=== PATIENT | male | born 1995 | race African-American/Black ===

== ENCOUNTER 2024-04-27 14:35 | Outpatient (CLI) | payer OTHER, SELFPAY ==
[2024-04-27 14:56] LABS: Basophils Percent Auto 0.5 % (0.2-1.2); Eosinophils Absolute Auto 0.2 K/mm3 (0-0.3); Eosinophils Percent Auto 3.4 % (0-4.4); Hematocrit 33.8 % (42.0-52.0); Hemoglobin 10.8 g/dL (14.0-18.0); Immature Granulocyte Absolute 0.02 K/mm3 (0.00-0.031); Immature Granulocyte Percent A 0.3 % (0-0.5); Lymphocytes Absolute Auto 1.09 K/mm3 (0.9-3.2); Lymphocytes Percent Auto 17.9 % (18.3-44.2); Mean Corpuscular Hemoglobin 25.4 pg (26-34); Mean Corpuscular Volume 79.3 fl (80-100); Mean Platelet Volume 8.2 fl (7.4-10.4); Monocytes Absolute Auto 0.3 K/mm3 (0.1-0.6); Monocytes Percent Auto 5.6 % (2.6-8.5); Neutrophils Absolute Auto 4.4 K/mm3 (1.3-6.7); Neutrophils Percent Auto 72.3 % (45.5-73.1); Platelet Count Result 713 k/mm3 (150-375); Red Blood Count 4.26 M/mm3 (4.6-6.20); Red Cell Distribution Width 14.6 % (11.5-14.5); White Blood Count 6.1 K/mm3 (4.5-10.0)
[2024-04-27 15:02] LABS: Hypochromasia 2+; Platelet Estimate Increased (Adequate); Schistocytes None Seen
[2024-04-27 15:03] LABS: Anisocytosis 2+; Crenated RBC 1+; Microcytosis 2+ (NORMAL); Ovalocytes 1+; Poikilocytosis 2+
[2024-04-27 20:18] LABS: Iron 29 ug/dL (49-181); Percent Iron Saturation 11 % (20-50)
[2024-04-27 21:33] LABS: Alanine Aminotransferase 21 U/L (6-50); Albumin Level 3.8 g/dL (3.5-5.1); Alkaline Phosphatase 68 U/L (38-126); Anion Gap 12 mmol/L (4-12); Aspartate Amino Transferase 36 U/L (17-59); Bilirubin,Total 0.3 mg/dL (0.2-1.3); Blood Urea Nitrogen 21 mg/dL (9-20); Calcium 9.3 mg/dL (8.4-10.2); Carbon Dioxide 26 mmol/L (22-30); Chloride 91 mmol/L (98-107); Estimated Glomerular Filt Rate > 60; Glucose 92 mg/dL (65-110); Potassium 4.7 mmol/L (3.4-5.0); Sodium 129 mmol/L (137-145)
[2024-04-27 22:38] LABS: Folic Acid 4.1 ng/mL (2.76->20)
[2024-04-29 10:55] LABS: Alpha Fetoprotein Tumor Marker 4.9 ng/mL (<6.1)
== END 2024-04-27 14:36 | disposition home or self-care (01) ==
PROVIDERS: Visit Provider Internal Medicine Hematology & Oncology
DX: C78.7 Secondary malignant neoplasm of liver and intrahepatic bile duct (principal); D64.9 Anemia, unspecified
CPT/HCPCS: 36415; 80053; 82105; 82607; 82728; 82746; 83540; 83550; 85025

== ENCOUNTER 2024-04-28 07:32 | Outpatient (CLI) | payer OTHER, SELFPAY ==
--- NOTE | ~2024-04-28 | US_ITS ---
EXAMINATION: US paracentesis abd w/image DATE: 04/28/2024 10:06 INDICATION: Ascites. TECHNIQUE: The procedure and its risks, benefits, and alternatives were discussed with the patient. P otential risks discussed included bleeding and infection. The skin was prepped and draped in sterile fashion. 1% lidocaine was used for local anesthesia. Under ultrasound guidance, a 5 Fr catheter with trochar was advanced into the ascites in the left lower quadrant. Fluid was aspirated. The catheter w as removed, and a dressing was applied. There were no immediate complications. FINDINGS: Ultrasound images demonstrate ascites and the catheter within the fluid. IMPRESSION: 1. Successful ultrasound-guided paracentesis yielding 4500 mL of yellow fluid. Reviewed, dictated and finalized at location A.
[2024-04-28 08:02] LABS: Basophils Percent Auto 0.5 % (0.2-1.2); Eosinophils Absolute Auto 0.1 K/mm3 (0-0.3); Eosinophils Percent Auto 1.5 % (0-4.4); Hematocrit 34.9 % (42.0-52.0); Hemoglobin 10.9 g/dL (14.0-18.0); Immature Granulocyte Absolute 0.01 K/mm3 (0.00-0.031); Immature Granulocyte Percent A 0.2 % (0-0.5); Lymphocytes Absolute Auto 1.06 K/mm3 (0.9-3.2); Lymphocytes Percent Auto 17.8 % (18.3-44.2); Mean Corpuscular HGB Conc 31.2 g/dl (32-36); Mean Corpuscular Hemoglobin 24.8 pg (26-34); Mean Corpuscular Volume 79.5 fl (80-100); Mean Platelet Volume 8.5 fl (7.4-10.4); Monocytes Absolute Auto 0.4 K/mm3 (0.1-0.6); Monocytes Percent Auto 6.4 % (2.6-8.5); Neutrophils Absolute Auto 4.4 K/mm3 (1.3-6.7); Neutrophils Percent Auto 73.6 % (45.5-73.1); Platelet Count Result 644 k/mm3 (150-375); Red Blood Count 4.39 M/mm3 (4.6-6.20); Red Cell Distribution Width 14.6 % (11.5-14.5)
[2024-04-28 08:47] LABS: INR 1.1; Prothrombin Time 14.5 Seconds (11.1-14.7)
== END 2024-04-28 07:33 | disposition home or self-care (01) ==
PROVIDERS: Radiology Diagnostic Radiology; Visit Provider Internal Medicine Hematology & Oncology
DX: R18.8 Other ascites (principal)
CPT/HCPCS: 36415; 49083; 85025; 85610; 88104; 88108; 88305; 88342

== ENCOUNTER 2024-05-03 07:13 | Inpatient (IN) | payer OTHER, SELFPAY ==
[2024-05-03] VITALS (11 sets, daily range): BP systolic 126–146; BP diastolic 92–120; PULSE 90–107; RESP 16–20; TEMP 36.4–37.1; O2SAT 100; BMI 15.0
--- NOTE | ~2024-05-03 | CT_ITS ---
EXAMINATION: CT brain wo con DATE: 05/08/2024 08:27 INDICATION: Vision change. TECHNIQUE: Computed tomography (CT) of the head was performed without intravenous contrast. The mA wa s adjusted according to patient size. Iterative reconstruction technique was employed. The dose-lengt h product was 605.33 mGy-cm. COMPARISON: None FINDINGS: There is no intracranial hemorrhage, acute infarction, or abnormal intracranial mass lesion . The ventricles are normal in size. The orbits are normal. The mastoid air cells are normal. There i s mucosal thickening in the paranasal sinuses. IMPRESSION: 1. Normal brain. Reviewed, dictated and finalized at location A. IMPRESSION: 1. Normal brain.
--- NOTE | ~2024-05-03 | US_ITS ---
EXAMINATION: US paracentesis abd w/image DATE: 05/13/2024 10:09 INDICATION: Malignant ascites TECHNIQUE: The procedure and its risks and benefits were discussed with the patient. Potential risks discussed included bleeding and infection. The skin was prepped and draped in sterile fashion. 1% lid ocaine was used for local anesthesia. Under ultrasound guidance, a 5 Fr catheter with trochar was adv anced into the ascites in the left lower quadrant. Fluid was aspirated into vacuum bottles. The kaila ter was removed, and a dressing was applied. There were no immediate complications. FINDINGS: Ultrasound images demonstrate ascites and the catheter within the fluid. IMPRESSION: 1. Successful ultrasound-guided paracentesis yielding 4800 mL of light rashida-colored fluid. Reviewed, dictated and finalized at location A. IMPRESSION: 1. Successful ultrasound-guided paracentesis yielding 4800 mL of light rashida-c olored fluid.
--- NOTE | ~2024-05-03 | US_ITS ---
EXAMINATION: US paracentesis abd w/image DATE: 05/03/2024 12:22 INDICATION: Ascites. TECHNIQUE: The procedure and its risks, benefits, and alternatives were discussed with the patient. P otential risks discussed included bleeding and infection. The skin was prepped and draped in sterile fashion. 1% lidocaine was used for local anesthesia. Under ultrasound guidance, a 5 Fr catheter with trochar was advanced into the ascites in the right lower quadrant. Fluid was aspirated. The catheter was removed, and a dressing was applied. There were no immediate complications. FINDINGS: Ultrasound images demonstrate ascites and the catheter within the fluid. IMPRESSION: 1. Successful ultrasound-guided paracentesis yielding 5000 mL of yellow fluid. Reviewed, dictated and finalized at location A.
--- NOTE | ~2024-05-03 | XR_ITS ---
XR fl guide central line place Indication: Insertion of portacatheter TECHNIQUE: Fluoroscopy used during Insertion of portacatheter performed by [Feliciano Morales] on 05/11/2024. 452 seconds with one fluoroscopic images captured. FINDINGS: Correlate with procedure note. IMPRESSION: Fluoroscopy used during Insertion of portacatheter. Reviewed, dictated and finalized at location B.
--- NOTE | ~2024-05-03 | CT_ITS ---
CT abdomen pelvis w con Ordering provider: Tracy White MD History: 28 years Male with . recurrent ascites;c/f colorectal/appendiceal malig . Comparison: None. Technique: CT abdomen and pelvis with IV and without oral contrast. Automated exposure control and it erative reconstruction technique were employed. The dose-length product was 190.28 mGy-cm. 100 mL Omn ipaque 350 was given IV. Findings: VISUALIZED LOWER CHEST: Normal. . UPPER ABDOMINAL ORGANS: Liver: Tiny cyst in the right lobe of the liver. Possibility of thrombus in the portal vein is not ex cluded. Further evaluation advised. Gallbladder: Normal. Spleen: Normal. Stomach/duodenum: Slightly thickened wall of the stomach. Clinical evaluation advised. Pancreas: Slightly prominent pancreatic duct. Adrenals: Normal. Kidneys: Minimal fullness of the renal pelvis bilaterally. PELVIC ORGANS: The bladder shows slightly thickened wall. Evaluation for cystitis advised.. BOWEL AND MESENTERY: Colon: Mild thickening of the wall of the sigmoid colon is seen. Colonoscopy is advised. Fecal materi al is loaded in the transverse and ascending colon.. Thickening in the wall of the transverse colon i s also noted.The appendix is not demonstrated. Small Bowel: The small bowel is slightly dilated in the pelvis with fluid content. Early obstruction cannot be excluded.. Peritoneum/mesentery: No free air. Free fluid is seen in the upper abdomen and in the pelvis. Thicken ing of the wall of the fluid in the pelvis is seen which may indicate loculation.. No mesenteric lymp hadenopathy. RETROPERITONEUM: Normal aorta. No retroperitoneal lymphadenopathy. MUSCULOSKELETAL: Superficial soft tissues: The superficial soft tissues are normal. Bones: Normal spine. IMPRESSION: 1. Gross ascites in the pelvis and in the upper abdomen. Possibility of loculation the pelvis is not excluded. 2. Highly suggestive of thrombus in the portal vein. Further evaluation advised. 3. Thickening of the wall in the area of the sigmoid colon and transverse colon. Sigmoidoscopy is ad vised. 4. Constipation 5. Slightly dilated small bowel loops. Early obstruction cannot be excluded. Follow-up advised. 6. Slightly prominent pancreatic duct. Follow-up advised. 7. Minimal fullness of the renal pelvis bilaterally. Reviewed, dictated and finalized at location A. IMPRESSION: 1. Gross ascites in the pelvis and in the upper abdomen. Possibility of locula tion the pelvis is not excluded. 2. Highly suggestive of thrombus in the portal vein. Further evaluation advise d. 3. Thickening of the wall in the area of the sigmoid colon and transverse colo n. Sigmoidoscopy is advised. 4. Constipation 5. Slightly dilated small bowel loops. Early obstruction cannot be excluded. F ollow-up advised. 6. Slightly prominent pancreatic duct. Follow-up advised. 7. Minimal fullness of the renal pelvis bilaterally.
--- NOTE | ~2024-05-03 | XR_ITS ---
Portable chest x-ray Comparison: None Clinical History: Mediport placed Findings: Left-sided Mediport present, tip in the right atrium. Lungs are clear. No pneumothorax. C ardiomediastinal silhouette is stable. Bones and soft tissues are unremarkable. Impression: Left-sided Mediport in place, as above. Clear lungs. Reviewed, dictated and finalized at location . Impression: Left-sided Mediport in place, as above. Clear lungs.
[2024-05-03 07:40] LABS: Basophils Percent Auto 0.4 % (0.2-1.2); Eosinophils Percent Auto 0.4 % (0-4.4); Hematocrit 30.6 % (42.0-52.0); Hemoglobin 9.9 g/dL (14.0-18.0); Immature Granulocyte Absolute 0.04 K/mm3 (0.00-0.031); Immature Granulocyte Percent A 0.7 % (0-0.5); Lymphocytes Absolute Auto 0.71 K/mm3 (0.9-3.2); Mean Corpuscular HGB Conc 32.4 g/dl (32-36); Mean Corpuscular Hemoglobin 24.9 pg (26-34); Mean Corpuscular Volume 76.9 fl (80-100); Mean Platelet Volume 8.3 fl (7.4-10.4); Monocytes Absolute Auto 0.4 K/mm3 (0.1-0.6); Monocytes Percent Auto 7.7 % (2.6-8.5); Neutrophils Absolute Auto 4.3 K/mm3 (1.3-6.7); Neutrophils Percent Auto 77.8 % (45.5-73.1); Platelet Count Result 488 k/mm3 (150-375); Red Blood Count 3.98 M/mm3 (4.6-6.20); Red Cell Distribution Width 14.6 % (11.5-14.5); White Blood Count 5.5 K/mm3 (4.5-10.0)
[2024-05-03 07:50] LABS: Alanine Aminotransferase 18 U/L (6-50); Albumin Level 3.2 g/dL (3.5-5.1); Alkaline Phosphatase 73 U/L (38-126); Anion Gap 10 mmol/L (4-12); Aspartate Amino Transferase 37 U/L (17-59); Bilirubin,Total 0.5 mg/dL (0.2-1.3); Blood Urea Nitrogen 22 mg/dL (9-20); Calcium 8.4 mg/dL (8.4-10.2); Carbon Dioxide 26 mmol/L (22-30); Chloride 88 mmol/L (98-107); Estimated CRCL calculation 83 ml/min; Estimated Glomerular Filt Rate > 60; Glucose 98 mg/dL (65-110); Lipase 71 U/L (23-300); Potassium 4.2 mmol/L (3.4-5.0); Sodium 124 mmol/L (137-145)
[2024-05-03 08:51] LABS: Add Urine Microscopic? YES; Appearance Urine Clear (Clear); Bacteria Urine None Seen /hpf; Bilirubin Urine Negative (Negative); Blood Urine Negative (Negative); Color Urine Yellow (Yellow); Glucose Urine UA Negative (Negative); Ketones Urine Trace mg/dL (Negative); Leukocyte Esterase Ur Negative LEU/UL (Negative); Nitrate Urine Negative (Negative); Non Pathogenic Casts 0-2; Protein Urine Trace mg/dL (Negative); Specific Grav Ur 1.032 (1.001-1.035); Squamous Epithelial Cell Urine None Seen /hpf (Few); WBC Urine 0-5 /hpf (0-3)
--- NOTE | 2024-05-03 08:52 | ED.ABDPAIN ---
HPI - Abdominal Pain General Chief Complaint: Abdominal Pain Stated Complaint: ASCITES Time Seen by Provider: 05/03/24 07:59 Source: patient and family Mode of arrival: ambulatory Limitations: no limitations History of Present Illness HPI narrative: Patient presents with report of low abdominal pain for the past 2-3 months. He has a history of ascites and had a paracentesis in which 4.5 L were drained 5 days ago at [facility]. He had 5 L taken off the paracentesis performed 1 week prior to that at [facility] in [place]. At that time he states he had a CT scan done. He was supposed to undergo a procedure with Dr. Noel davila today that was canceled due to insurance he does not know what the procedure was. He has been having nausea and vomiting but denies any diarrhea. Denies any fevers. His last bowel movement was approximately 1 week ago though he states it was scant. He experiences intermittent shortness of breath. He denies any alcohol consumption recently and he states he did not recently quit. No family history of GI or liver issues. Patient states he was initially told was concern for colon cancer but then he was told that he had cirrhosis of the liver. Related Data Allergies Allergy/AdvReac Type Severity Reaction Status Date / Time No Known Allergies Allergy Verified 05/03/24 13:17 [facility] Past Medical History Medical History Anorexia Cirrhosis Iron deficiency anemia Malignant ascites Weight loss Social History Social History Smoking status: Never smoker Alcohol intake: never Substance use: never Do You Feel Safe in your Home?: Yes Lack of Transportation: No Lack of Food: Never True Current Housing: I Have Housing Concerned About Future Housing: No Difficulty Paying Gas/Electric Bills: YES Difficulty Paying for Meds: No Currently Unemployed: No Education: Decline to Answer Difficulty w/ Childcare or Family Care: No Spiritual care concerns: No Exam Narrative: GENERAL: in no acute distress. Appears gaunt/cachectic with temporal wasting HEAD: Normocephalic, atraumatic. EYES: Non injected, non icteric ENT: Nares clear, no rhinorrhea or epistaxis. NECK: Supple. CHEST: Speaking in full sentences. No respiratory distress. HEART: Mildly tachycardic rate and rhythm. . ABDOMEN: Soft, distended. Taught but not rigid/firm. No tenderness to palpation throughout. Not peritoneal. Ascites. EXTREMITIES: Normal range of motion. No lower extremity edema. Thin extremities. SKIN: Warm, dry, no rash. NEURO: No focal deficits. Alert and oriented x3. PSYCH: Normal mood and affect. Course Vital Signs Vital signs: Vital Signs Temperature 98.6 F 05/03/24 07:22 Pulse Rate 104 H 05/03/24 07:22 Respiratory Rate 16 05/03/24 07:22 Blood Pressure 138/107 H 05/03/24 07:22 Pulse Oximetry 100 05/03/24 07:22 Oxygen Delivery Room Air 05/03/24 07:22 Temperature 98.3 F 05/03/24 20:55 Pulse Rate 95 05/03/24 20:55 Respiratory Rate 18 05/03/24 20:55 Blood Pressure 130/107 H 05/03/24 20:55 Pulse Oximetry 100 05/03/24 20:55 Oxygen Delivery Room Air 05/03/24 20:00 MDM - Abdominal Pain MDM Narrative Medical decision making narrative: Patient presents with low abdominal pain and recurrence of ascites. In the emergency department he is afebrile with vital signs notable for elevated diastolic blood pressure as well as mild tachycardia. Attempted to retrieve documentation from patient's ED visit/hospitalization at [facility] from 1-2 weeks ago. Patient states he was supposed to have some procedure done with Dr. Noel Alonso it was but was canceled due to insurance purposes. Do not see any notes in the EMR from Dr. Noel Alonso. I did call and discuss with Dr Thompson at 09:25 but he hasn't seen this patient and is n
[2024-05-03] MEDS: ONDANSETRON INJ 4 MG/2 ML VIAL IV PUSH ×2 (09:18→13:40)
[2024-05-03 09:25] LABS: INR 1.1; Prothrombin Time 14.3 Seconds (11.1-14.7)
[2024-05-03 11:48] LABS: Lactate Dehydrogenase 184 U/L (120-246)
--- NOTE | 2024-05-03 13:09 | PC.NURSE ---
This patient, Kaden Schmitz, was admitted to [facility] Room 327-01 at 12:39. Patient/family oriented to hospital policies and general routines including ID bracelet, bed and alarms, visiting hours, pain management, procedures, bathroom and other care routines, personal items, smoking policy, room service/diet, and visiting hours. Information on how to activate the Rapid Response Team has been discussed. Patient/Family are encouraged to report perceived risks to care and to ask questions if they do not understand what they are told or what they should do.
--- NOTE | 2024-05-03 13:25 | WPDGICN ---
Assessment and Plan Assessment and plan (1) Malignant ascites: Code(s): R18.0 - Malignant ascites Status: Acute Assessment and Plan: wonder if primary could be colorectal based on path report prognosis is guarded, he saw Dr Hughes recently in his office will do EGD and colonoscopy tomorrow to see if can find primary (2) Iron deficiency anemia: Code(s): D50.9 - Iron deficiency anemia, unspecified Status: Acute Assessment and Plan: probable related to malignancy (3) Weight loss: Code(s): R63.4 - Abnormal weight loss Status: Acute (4) Hyponatremia: Code(s): E87.1 - Hypo-osmolality and hyponatremia Status: Acute Assessment and Plan: by primary (5) Anorexia: Code(s): R63.0 - Anorexia Status: Acute (6) Cirrhosis: Code(s): K74.60 - Unspecified cirrhosis of liver Status: Acute Assessment and Plan: last imaging at another hospital will get hepatitis panel egd tomorrow GI Consult Note Consult date/time: 05/03/24 13:25 Reason for consult: malignant ascites HPI: Kaden Schmitz is a 28 year old male who has been losing weight for 6 months, also decrease appetite and last few weeks with increase abdominal girth that require paracentesis, denies known history of liver disease, no alcohol abuse. He had EGD 2019 in [facility] when had small hiatal hernia and non bleeding gastric ulcer. Recent hospitalization at [facility], imaging showed liver cirrhosis with ascites. He was sent to see Dr Hughes who ordered another parecentesis, pathology revealed malignant ascites (possible colorectal source). He was supposed to see us for outpatient endoscopic evaluation since never had colonoscopy but came here with more ascites- 5 liters removed today. He also had change in bowel habits. Blood work showed susana, hgb 10, normal liver enzymes. Review of Systems Constitutional: Constitutional: Reports weakness and Reports weight loss Eyes: Eyes: Denies blurry vision ENT: Reports Normal hearing present Cardiovascular: Cardiovascular: Denies chest pain Respiratory: Respiratory: Denies cough Gastrointestinal: Gastrointestinal: Reports nausea Genitourinary: Genitourinary: Denies dysuria Musculoskeletal: Musculoskeletal: Denies neck pain Integumentary/Breasts: Skin/Breast: Denies rash Neurologic: Denies Abnormal speech present Psychiatric: Psychiatric: Denies behavioral changes PMFSH Past Medical History Medical History (Updated 05/03/24 @ 14:28 by Jerald Thompson MD) Anorexia Cirrhosis Iron deficiency anemia Malignant ascites Weight loss Social History Social History Smoking status: Never smoker Alcohol intake: never Substance use: never Do You Feel Safe in your Home?: Yes Lack of Transportation: No Lack of Food: Never True Current Housing: I Have Housing Concerned About Future Housing: No Difficulty Paying Gas/Electric Bills: YES Difficulty Paying for Meds: No Currently Unemployed: No Education: Decline to Answer Difficulty w/ Childcare or Family Care: No Spiritual care concerns: No Meds Home Medications and Allergies Allergies Allergy/AdvReac Type Severity Reaction Status Date / Time No Known Allergies Allergy Verified 05/03/24 13:17 Vital Signs Vital Signs - 24 hr 05/03/24 07:22 05/03/24 10:02 05/03/24 07:25 Temperature 98.6 F 97.6 F Pulse Rate 104 H 98 98 Respiratory Rate 16 19 18 Blood Pressure 138/107 H 146/113 H 141/118 H Pulse Oximetry 100 100 100 Oxygen Delivery Room Air 05/03/24 08:00 05/03/24 08:15 05/03/24 09:00 Temperature 97.8 F Pulse Rate 102 H 90 98 Respiratory Rate 17 20 17 Blood Pressure 141/120 H 126/92 H 140/100 H Pulse Oximetry 100 100 100 Oxygen Delivery 05/03/24 10:00 05/03/24 10:30 05/03/24 11:00 Temperature 97.8 F 97.8 F Pulse Rate 101 H 93 95 Respiratory Rat
[2024-05-03] MEDS: SODIUM CHLORIDE 0.9% IV 1,000 ML 100 ML IV CONT ×2 (13:40→23:28)
[2024-05-03 13:41] LABS: Source Peritoneal Fluid Peritoneal Fluid
[2024-05-03 13:42] LABS: Appearance Peritoneal Fluid Hazy (Clear); Color Peritoneal Fluid Yellow (Colorless); Nucleated Cells Peritoneal Flu 996 /uL (0-500)
[2024-05-03 13:43] LABS: Lymphocytes Peritoneal Fluid 35 %; Macrophages Peritoneal Fluid 15 %; Mesothelial Cells Peritoneal Fluid 38 %; Monocytes Peritoneal Fluid 6 %; Neutrophils Peritoneal Fluid 6 % (0-25); RBC Peritoneal Fluid 3000 /uL (0-10000)
[2024-05-03] MEDS: polyethylene glycoL 3350 238 GM BOTTLE PO (16:32)
[2024-05-03] MEDS: BISACODYL 5 MG TABLET EC 20 MG PO (16:32)
--- NOTE | 2024-05-03 17:40 | PM.IMHP ---
H&P: HPI History of Present Illness Date/Time: 05/03/24 17:40 Chief Complaint: Abdominal discomfort Narrative: Patient presented to the ER with reports of abdominal discomfort, describing it as tightness, that he's been having within the last couple of weeks. Patient was scheduled for an outpatient colonoscopy by GI today but presented to the ER instead, reporting severe abdominal pain. Patient is seen on the floor after undergoing a successul US Guided paracentesis with 5000 ml yellow fluid removed. Patient had recent hospitalization at [place], where imaging showed liver cirrhosis with ascites. He was sent to see Dr Hughes who ordered another parecentesis, pathology revealing malignant ascites (possible colorectal source). He reports nausea and vomiting with anorexia, since symptoms started. Significant ER Work-up labs: Hgb 9.9, Na 124, Albumin 3.2, LFT's wnl. Significant Imaging in ER: CT abd/pelvis: IMPRESSION: 1. Gross ascites in the pelvis and in the upper abdomen. Possibility of loculation the pelvis is not excluded. 2. Highly suggestive of thrombus in the portal vein. Further evaluation advised. 3. Thickening of the wall in the area of the sigmoid colon and transverse colon. Sigmoidoscopy is advised. 4. Constipation 5. Slightly dilated small bowel loops. Early obstruction cannot be excluded. Follow-up advised. 6. Slightly prominent pancreatic duct. Follow-up advised. 7. Minimal fullness of the renal pelvis bilaterally. Review of Systems Review of Systems: All systems reviewed & are unremarkable except as noted in HPI and below PMFSH Past Medical History Medical History Anorexia Cirrhosis Iron deficiency anemia Malignant ascites Weight loss Social History Social History Smoking status: Never smoker Alcohol intake: never Substance use: never Do You Feel Safe in your Home?: Yes Lack of Transportation: No Lack of Food: Never True Current Housing: I Have Housing Concerned About Future Housing: No Difficulty Paying Gas/Electric Bills: YES Difficulty Paying for Meds: No Currently Unemployed: No Education: Decline to Answer Difficulty w/ Childcare or Family Care: No Spiritual care concerns: No Meds Home Medications and Allergies Allergies Allergy/AdvReac Type Severity Reaction Status Date / Time No Known Allergies Allergy Verified 05/03/24 13:17 Vital Signs Vital Signs - 24 hr 05/03/24 07:22 05/03/24 10:02 05/03/24 07:25 Temperature 98.6 F 97.6 F Pulse Rate 104 H 98 98 Respiratory Rate 16 19 18 Blood Pressure 138/107 H 146/113 H 141/118 H Pulse Oximetry 100 100 100 Oxygen Delivery Room Air 05/03/24 08:00 05/03/24 08:15 05/03/24 09:00 Temperature 97.8 F Pulse Rate 102 H 90 98 Respiratory Rate 17 20 17 Blood Pressure 141/120 H 126/92 H 140/100 H Pulse Oximetry 100 100 100 Oxygen Delivery 05/03/24 10:00 05/03/24 10:30 05/03/24 11:00 Temperature 97.8 F 97.8 F Pulse Rate 101 H 93 95 Respiratory Rate 19 17 17 Blood Pressure 146/113 H 133/101 H 132/102 H Pulse Oximetry 100 100 100 Oxygen Delivery 05/03/24 13:02 Temperature 98.7 F Pulse Rate 107 H Respiratory Rate 17 Blood Pressure 143/97 H Pulse Oximetry 100 Oxygen Delivery Exam Narrative: General: Thin, chronically ill appearance. HEENT: PERRL, EOM, non-icteric Neck: Supple. Respiration: Lungs clear bilaterally. Cardiovascular: Tachycardia, S1S2 Abdomen: Tight, slightly tender, +ve bowel sounds X4 quadrants. Extremities: No edema, Radial and Pedal pulses 2+. Skin: Warm and dry. No lesions noted on limited exam. Neuro: Well oriented. CN II-XII grossly intact. Psych:Detached, possibly depressed. H&P: Results Labs Labs: Short CBC 05/03/24 Range/Units 07:34 WBC 5.5 (4.5-10.0) K/mm3 Hgb 9.9 L (14.0-18.0) g/dL Hct 30.6 L (42.0-52.0) % Plt Count
[2024-05-03 19:10] LABS: Basophils Percent Auto 0.5 % (0.2-1.2); Eosinophils Percent Auto 0.4 % (0-4.4); Hemoglobin 8.9 g/dL (14.0-18.0); Immature Granulocyte Absolute 0.03 K/mm3 (0.00-0.031); Immature Granulocyte Percent A 0.5 % (0-0.5); Lymphocytes Absolute Auto 0.75 K/mm3 (0.9-3.2); Lymphocytes Percent Auto 13.4 % (18.3-44.2); Mean Corpuscular Volume 75.8 fl (80-100); Mean Platelet Volume 8.6 fl (7.4-10.4); Monocytes Absolute Auto 0.4 K/mm3 (0.1-0.6); Monocytes Percent Auto 7.3 % (2.6-8.5); Neutrophils Absolute Auto 4.4 K/mm3 (1.3-6.7); Neutrophils Percent Auto 77.9 % (45.5-73.1); Platelet Count Result 400 k/mm3 (150-375); Red Blood Count 3.56 M/mm3 (4.6-6.20); Red Cell Distribution Width 14.3 % (11.5-14.5); White Blood Count 5.6 K/mm3 (4.5-10.0)
[2024-05-04] VITALS (9 sets, daily range): BP systolic 120–150; BP diastolic 85–115; PULSE 74–100; RESP 16–20; TEMP 36.2–37.1; O2SAT 96–100; BMI 15.0
[2024-05-04] MEDS: MAGNESIUM CITRATE 300 ML BTL PO (01:49)
[2024-05-04 06:38] LABS: Basophils Percent Auto 0.5 % (0.2-1.2); Eosinophils Percent Auto 0.5 % (0-4.4); Hematocrit 32.2 % (42.0-52.0); Hemoglobin 10.2 g/dL (14.0-18.0); Immature Granulocyte Absolute 0.03 K/mm3 (0.00-0.031); Immature Granulocyte Percent A 0.5 % (0-0.5); Lymphocytes Absolute Auto 0.72 K/mm3 (0.9-3.2); Lymphocytes Percent Auto 11.8 % (18.3-44.2); Mean Corpuscular HGB Conc 31.7 g/dl (32-36); Mean Corpuscular Hemoglobin 24.8 pg (26-34); Mean Corpuscular Volume 78.2 fl (80-100); Mean Platelet Volume 8.5 fl (7.4-10.4); Monocytes Absolute Auto 0.5 K/mm3 (0.1-0.6); Monocytes Percent Auto 8.7 % (2.6-8.5); Neutrophils Absolute Auto 4.8 K/mm3 (1.3-6.7); Platelet Count Result 399 k/mm3 (150-375); Red Blood Count 4.12 M/mm3 (4.6-6.20); Red Cell Distribution Width 14.4 % (11.5-14.5); White Blood Count 6.1 K/mm3 (4.5-10.0)
[2024-05-04 06:56] LABS: Alanine Aminotransferase 17 U/L (6-50); Albumin Level 2.8 g/dL (3.5-5.1); Alkaline Phosphatase 60 U/L (38-126); Anion Gap 7 mmol/L (4-12); Aspartate Amino Transferase 36 U/L (17-59); Bilirubin,Total 0.2 mg/dL (0.2-1.3); Blood Urea Nitrogen 17 mg/dL (9-20); Calcium 7.7 mg/dL (8.4-10.2); Carbon Dioxide 28 mmol/L (22-30); Chloride 89 mmol/L (98-107); Estimated CRCL calculation 83 ml/min; Estimated Glomerular Filt Rate > 60; Glucose 88 mg/dL (65-110); Potassium 4.2 mmol/L (3.4-5.0); Sodium 124 mmol/L (137-145)
[2024-05-04] MEDS: SODIUM CHLORIDE 0.9% IV 1,000 ML 100 ML IV CONT ×2 (09:30→23:44)
--- NOTE | 2024-05-04 09:51 | PDONCCN ---
HPI - Date of Consult Date/Time: 05/04/24 18:21 <Ronny Hughes - 05/04/24 18:23> 05/04/24 09:51 <Lynette Jeffery - 05/04/24 10:02> Requesting Physician: Riley Gordon MD <Ronny Hughes - 05/04/24 18:23> Riley Gordon MD <Lynette Jeffery - 05/04/24 10:02> Primary Care Provider: UNKNOWN,DOCTOR <Ronny Hughes - 05/04/24 18:23> UNKNOWN,DOCTOR <Lynette Jeffery - 05/04/24 10:02> - Consult Narrative Reason for consult: Colon Cancer <Lynette Jeffery - 05/04/24 10:02> Narrative: Kaden Schmitz is a 28 year old male <Ronny Hughes - 05/04/24 18:23> Kaden Schmitz is a 28 year old male with a past medical history of liver cirrhosis and ascites who presented to the ED for worsening abdominal pain. Patient seems comfortable lying in bed and slightly drowsy. He denies any abdominal pain, n/v/d/c. We saw this patient in office on 04/27 for an elevated CA125 and weight loss. He has had abdominal distention and weight loss for the last 5-6 weeks. He has lost about 30lbs in the last 6 months. He tells me that he is able to eat and drink fairly. A paracentesis was done on 05/03 removing 5000ml of fluid. Pathology report shows metastatic malignant cells consistent with colorectal or appendiceal origin. Labs today are notable for WBC 6.1, Hgb 10.2, Hct 32, Plt 399. Iron studies from 04/[address] scans gross ascites in the pelvis and in the upper abdomen. Possibility of loculation the pelvis is not excluded. 2. Highly suggestive of thrombus in the portal vein. Further evaluation advised. 3. Thickening of the wall in the area of the sigmoid colon and transverse colon. Sigmoidoscopy is advised. 4. Constipation 5. Slightly dilated small bowel loops. Early obstruction cannot be excluded. Follow-up advised. 6. Slightly prominent pancreatic duct. Follow-up advised. 7. Minimal fullness of the renal pelvis bilaterally. <iSm Jefferyne 05/04/24 10:58> Review of Systems - Review of Systems All systems reviewed & are unremarkable except as noted in HPI and bel <Lynette Jeffery 05/04/24 10:58> - Neurologic Reports hearing normal, Reports weakness, Denies abnormal speech, Denies behavioral changes <LatiaLynette 05/04/24 10:02> [facility] Medical History: Medical History (Last Reviewed 05/03/24 @ 17:54 by Janna Foley NP) Anorexia Cirrhosis Iron deficiency anemia Malignant ascites Weight loss <Ronny Hughes - 05/04/24 18:23> Medical History (Last Reviewed 05/03/24 @ 17:54 by Janna Foley NP) Anorexia Cirrhosis Iron deficiency anemia Malignant ascites Weight loss <LatiaLynette 05/04/24 10:02> - Social History Social History: Social History (Last Reviewed 05/03/24 @ 17:54 by Janna Foley NP) Alcohol Use: Alcohol intake: never Substance Use: Substance use: never Others: Spiritual care concerns: No Smoking Status: Smoking status: Never smoker Social Determinants of Health: Do You Feel Safe in your Home?: Yes Has the Lack of Transportation Kept You From Medical Appointments or From Getting Medications?: No Within the Past 12 Months, Were You Worried Whether Your Food Would Run Out Before You Got Money to Buy More?: Never True What is Your Housing Situation Today?: I Have Housing Are You Worried That in the Next 2 Months, You May Not Have Your Own Housing to Live In?: No Do You Have Trouble Paying Your Heating Or Electricity Bill?: Yes Do You Have Trouble Paying For Medicines?: No Are You Currently Unemployed and Looking for Work?: No Highest Level of Education Completed: Decline to Answer Do You Have Trouble With Childcare or the Care of a Family Member?: No <Ronny Hughes - 05/04/24 18:23> Social History (Last Reviewed 05/03/24 @ 17:54 by Janna Foley NP) Alcohol Use: Alcohol intake: never
[2024-05-04] MEDS: IRON SUCROSE COMPLEX 400 MG, IRON SUCROSE COMPLEX 100 MG in SODIUM CHLORIDE 0.9% IV 250 ML 78.57 MG IVPB (11:48)
[2024-05-04] MEDS: amLODIPine BESYLATE 5 MG TABLET PO (11:48)
[2024-05-04] MEDS: LACTATED RINGERS 1,000 ML 150 ML IV CONT (14:42)
--- NOTE | 2024-05-04 14:45 | WPDANESEPPF ---
Anes - Initial Pre Proc Eval Procedure: Operation Date: 05/04/24 15:30 Proposed Procedures p Esophagogastroduodenoscopy & Colonoscopy - Jerald Thompson MD Date/Time: 05/04/24 14:45 Surgeon: Riley Gordon MD Pre Op Diagnosis: Malignant ascites Patient Data Age: 28 Gender: M Height: 1.93 m Weight: 55.9 kg Last Vital Signs Temp 36.2 C L 05/04/24 14:38 Pulse 95 05/04/24 14:38 Resp 20 05/04/24 14:38 BP 147/115 H 05/04/24 14:38 Pulse Ox 100 05/04/24 14:38 O2 Del Method Room Air 05/04/24 14:38 Allergies Allergy/AdvReac Type Severity Reaction Status Date / Time No Known Allergies Allergy Verified 05/04/24 14:35 Home Medications Medication Instructions Recorded Confirmed Type amlodipine 5 mg tablet 5 mg PO DAILY 05/04/24 05/04/24 History Laboratory Tests 05/03/24 05/04/24 18:59 06:06 WBC 5.6 K/mm3 6.1 K/mm3 (4.5-10.0) (4.5-10.0) RBC 3.56 L M/mm3 4.12 L M/mm3 (4.6-6.20) (4.6-6.20) Hgb 8.9 L g/dL 10.2 L g/dL (14.0-18.0) (14.0-18.0) Hct 27.0 L % 32.2 L % (42.0-52.0) (42.0-52.0) MCV 75.8 L fl 78.2 L fl (80-100) (80-100) MCH 25.0 L pg 24.8 L pg (26-34) (26-34) MCHC 33.0 g/dl 31.7 L g/dl (32-36) (32-36) RDW 14.3 % 14.4 % (11.5-14.5) (11.5-14.5) Plt Count 400 H k/mm3 399 H k/mm3 (150-375) (150-375) MPV 8.6 fl 8.5 fl (7.4-10.4) (7.4-10.4) Immature Gran % (Auto) 0.5 % 0.5 % (0-0.5) (0-0.5) Neut % (Auto) 77.9 H % 78.0 H % (45.5-73.1) (45.5-73.1) Lymph % (Auto) 13.4 L % 11.8 L % (18.3-44.2) (18.3-44.2) [place] % (Auto) 7.3 % 8.7 H % (2.6-8.5) (2.6-8.5) Eos % (Auto) 0.4 % 0.5 % (0-4.4) (0-4.4) Baso % (Auto) 0.5 % 0.5 % (0.2-1.2) (0.2-1.2) Lymph # (Auto) 0.75 L K/mm3 0.72 L K/mm3 (0.9-3.2) (0.9-3.2) [place] # (Auto) 0.4 K/mm3 0.5 K/mm3 (0.1-0.6) (0.1-0.6) Eos # (Auto) 0.0 K/mm3 0.0 K/mm3 (0-0.3) (0-0.3) Baso # (Auto) 0.0 K/mm3 0.0 K/mm3 (0.0-0.1) (0.0-0.1) Abs Immat Gran (auto) 0.03 K/mm3 0.03 K/mm3 (0.00-0.031) (0.00-0.031) Absolute Neuts (auto) 4.4 K/mm3 4.8 K/mm3 (1.3-6.7) (1.3-6.7) Absolute Nucleated RBC 0.000 K/mm3 0.000 K/mm3 (0.0-0.012) (0.0-0.012) Nucleated RBC % 0.0 % 0.0 % (0.0-0.2) (0.0-0.2) Sodium 124 L mmol/L (137-145) Potassium 4.2 mmol/L (3.4-5.0) Chloride 89 L mmol/L (98-107) Carbon Dioxide 28 mmol/L (22-30) Anion Gap 7 mmol/L (4-12) BUN 17 mg/dL (9-20) Creatinine 0.90 mg/dL (0.7-1.3) Estim Creat Clear Calc 83 ml/min Estimated GFR > 60 (59 - ) Glucose 88 mg/dL (65-110) Calcium 7.7 L mg/dL (8.4-10.2) Total Bilirubin 0.2 mg/dL (0.2-1.3) AST 36 U/L (17-59) ALT 17 U/L (6-50) Alkaline Phosphatase 60 U/L (38-126) Total Protein 6.0 L g/dL (6.3-8.2) Albumin 2.8 L g/dL (3.5-5.1) Patient hx anesthesia problems: none Family hx anesthesia problems: none Results Review: All pre-operative results and documents have been reviewed as part of the pre-operative evaluation. PENDING SALE TO [facility] Past Medical History Medical History Anorexia Cirrhosis Iron deficiency anemia Malignant ascites Mass of stomach Weight loss Social History Social History Smoking status: Never smoker Alcohol intake: never Substance use: never Do You Feel Safe in your Home?: Yes Lack of Transportation: No Lack of Food: Never True Current Housing: I Have Housing Concerned About Future Housing: No Difficulty Paying Gas/Electric Bills: YES Difficulty Paying for Meds: No Currently Unemployed: No Education: Decline to Answer Difficulty w/ Childcare or Family Care: No Spiritual care concerns: No Anes - Eval Final P
--- NOTE | 2024-05-04 15:19 | SUR.OPER ---
EGD COMPLETED AT 151,COLONOSCOPY STARTED AT 151
[2024-05-04] MEDS: FERROUS SULFATE 325 MG TABLET DR PO (16:28)
--- NOTE | 2024-05-04 16:38 | WPDPN ---
Progress Note: A&P Assessment and Plan (1) Colon wall thickening: Code(s): K63.9 - Disease of intestine, unspecified Status: Acute (2) Constipation: Code(s): K59.00 - Constipation, unspecified Status: Acute (3) Portal vein thrombosis: Code(s): I81 - Portal vein thrombosis Status: Acute (4) Cirrhosis: Code(s): K74.60 - Unspecified cirrhosis of liver Status: Acute (5) Weight loss: Code(s): R63.4 - Abnormal weight loss Status: Acute (6) Anorexia: Code(s): R63.0 - Anorexia Status: Acute (7) Iron deficiency anemia: Code(s): D50.9 - Iron deficiency anemia, unspecified Status: Acute Plan today patient stats his pain is persisting but tolerable, had paracentesis on 05/03/2024 and 5L was removed, fluids consist of colorectal or appendiceal origin, suspicious for malignancy, primary source is unclear, to further evaluate and find the primary source patient is schedule to have EGD and colonoscopy today and patient is seen by sql engineer oncologist and further recommendation to follow. will continue to monitor. Subjective Date/time seen: 05/04/24 16:38 Interval history: Abdominal discomfort [id number]: Patient presented to the ER with reports of abdominal discomfort, describing it as tightness, that he's been having within the last couple of weeks. Patient was scheduled for an outpatient colonoscopy by GI today but presented to the ER instead, reporting severe abdominal pain. Patient is seen on the floor after undergoing a successul US Guided paracentesis with 5000 ml yellow fluid removed. Patient had recent hospitalization at [place], where imaging showed liver cirrhosis with ascites. He was sent to see Dr Hughes who ordered another parecentesis, pathology revealing malignant ascites (possible colorectal source). He reports nausea and vomiting with anorexia, since symptoms started. Significant ER Work-up labs: Hgb 9.9, Na 124, Albumin 3.2, LFT's wnl. Significant Imaging in ER: CT abd/pelvis: IMPRESSION: 1. Gross ascites in the pelvis and in the upper abdomen. Possibility of loculation the pelvis is not excluded. 2. Highly suggestive of thrombus in the portal vein. Further evaluation advised. 3. Thickening of the wall in the area of the sigmoid colon and transverse colon. Sigmoidoscopy is advised. 4. Constipation 5. Slightly dilated small bowel loops. Early obstruction cannot be excluded. Follow-up advised. 6. Slightly prominent pancreatic duct. Follow-up advised. 7. Minimal fullness of the renal pelvis bilaterally. today patient stats his pain is persisting but tolerable, had paracentesis on 05/03/2024 and 5L was removed, fluids consist of colorectal or appendiceal origin, suspicious for malignancy, primary source is unclear, to further evaluate and find the primary source patient is schedule to have EGD and colonoscopy today and patient is seen by sql engineer oncologist and further recommendation to follow. will continue to monitor. Exam Narrative: Appears chronically ill Patient is comfortable, NAD HEENT: eyes are clear and none icteric LUNGS:CTA HEART: RR S1S2 ABD: BS+, Soft and diffusely tender Lower extremities: no edema SKIN: nonjaundiced Neuro: grossly intact. Objective Data Vital Signs Vital Signs: Vital Signs - 24 hr 05/03/24 20:55 05/03/24 20:00 05/04/24 06:04 Temperature 36.8 C 36.8 C Pulse Rate 95 89 Respiratory Rate 18 16 Blood Pressure 130/107 H 148/111 H Pulse Oximetry 100 100 Oxygen Delivery Room Air 05/04/24 06:25 05/04/24 08:00 05/04/24 10:40 Temperature Pulse Rate Respiratory Rate Blood Pressure 150/98 H Pulse Oximetry 96 Oxygen Delivery Room Air Room Air 05/04/24 14:38 05/04/24 15:29 05/04/24 15:39 Temperature 36.2 C L Pulse Rate 95 92 80 Respiratory Rate 20 20 20 Blood Pressure 147/115 H 120/85 123/92 H Pulse Oximetry 100 100 100 Oxygen
[2024-05-04] MEDS: MORPHINE SULFATE (*CRX) 2 MG/ML INJ IV PUSH (23:43)
[2024-05-05 05:53] VITALS: BP 137/98; PULSE 100; RESP 18; TEMP 37.2; O2SAT 100
[2024-05-05] MEDS: MORPHINE SULFATE (*CRX) 2 MG/ML INJ IV PUSH ×3 (06:08→17:29)
[2024-05-05 07:09] LABS: Basophils Percent Auto 0.4 % (0.2-1.2); Eosinophils Percent Auto 0.1 % (0-4.4); Hematocrit 27.6 % (42.0-52.0); Hemoglobin 8.8 g/dL (14.0-18.0); Immature Granulocyte Absolute 0.06 K/mm3 (0.00-0.031); Immature Granulocyte Percent A 0.8 % (0-0.5); Lymphocytes Absolute Auto 0.71 K/mm3 (0.9-3.2); Lymphocytes Percent Auto 9.6 % (18.3-44.2); Mean Corpuscular HGB Conc 31.9 g/dl (32-36); Mean Corpuscular Hemoglobin 24.2 pg (26-34); Mean Platelet Volume 8.6 fl (7.4-10.4); Monocytes Absolute Auto 0.4 K/mm3 (0.1-0.6); Monocytes Percent Auto 5.8 % (2.6-8.5); Neutrophils Absolute Auto 6.2 K/mm3 (1.3-6.7); Neutrophils Percent Auto 83.3 % (45.5-73.1); Nucleated Red Blood Cells Perc 0.5 % (0.0-0.2); Platelet Count Result 440 k/mm3 (150-375); Red Blood Count 3.63 M/mm3 (4.6-6.20); Red Cell Distribution Width 14.4 % (11.5-14.5); White Blood Count 7.4 K/mm3 (4.5-10.0)
--- NOTE | 2024-05-05 07:27 | P.CDI_ITS ---
CDI Query Clarification Request BMI 16.0 Nutritional Diagnostic Statement: Please refer to the comprehensive nutrition assessment for further information. If you agree with diagnosis of Severe protein calorie malnutrition related to chronic altered GI function as evidenced by weight loss 20%/6 months; intakes <75% needs >1 month; severe muscle wasting and fat loss. Please specify severity if known: * Mild * Moderate * Severe * Other/Unknown <Es Marcelo RN - Last Filed: 05/05/24 07:29> Clarified Diagnosis Clarified Diagnosis: Yes I agree with diagnosis of Severe protein calorie malnutrition related to chronic altered GI function as evidenced by weight loss 20%/6 months; intakes <75% needs >1 month; severe muscle wasting and fat loss <Britton Garcia MD - Last Filed: 05/22/24 10:07>
[2024-05-05 07:31] LABS: Alanine Aminotransferase 15 U/L (6-50); Albumin Level 2.4 g/dL (3.5-5.1); Alkaline Phosphatase 57 U/L (38-126); Anion Gap 4 mmol/L (4-12); Aspartate Amino Transferase 31 U/L (17-59); Bilirubin,Total 0.2 mg/dL (0.2-1.3); Blood Urea Nitrogen 15 mg/dL (9-20); Calcium 7.4 mg/dL (8.4-10.2); Carbon Dioxide 26 mmol/L (22-30); Chloride 92 mmol/L (98-107); Estimated CRCL calculation 83 ml/min; Estimated Glomerular Filt Rate > 60; Glucose 108 mg/dL (65-110); Potassium 4.3 mmol/L (3.4-5.0); Sodium 122 mmol/L (137-145)
[2024-05-05 07:53] LABS: Carcinoembryonic Antigen 0.8 ng/mL (0.0-3.0)
[2024-05-05] MEDS: FERROUS SULFATE 325 MG TABLET DR PO ×2 (09:01→16:15)
[2024-05-05] MEDS: amLODIPine BESYLATE 5 MG TABLET PO (09:01)
[2024-05-05] MEDS: ONDANSETRON INJ 4 MG/2 ML VIAL IV PUSH ×2 (09:13→17:29)
--- NOTE | 2024-05-05 09:24 | WPDANESPN ---
Anes - Prog Note Post-Op Date/Time: 05/05/24 09:24 Cardiovascular status: normal Respiratory status: normal Airway patency: baseline Mental status: baseline Post-Op hydration status: normal Vital Signs: Last Vital Signs Temp 37.2 C 05/05/24 05:53 Pulse 100 05/05/24 05:53 Resp 18 05/05/24 05:53 BP 137/98 H 05/05/24 05:53 Pulse Ox 100 05/05/24 05:53 O2 Del Method Room Air 05/04/24 20:00 Pain Score (VAS): 410 I/O: Intake & Output 05/04/24 05/05/24 05/05/24 23:59 07:59 15:59 Intake Total 700 100 100 Balance 700 100 100 Laboratory Tests 05/05/24 07:00 05/05/24 07:00 05/05/24 07:00 WBC 7.4 RBC 3.63 L Hgb 8.8 L Hct 27.6 L MCV 76.0 L MCH 24.2 L MCHC 31.9 L RDW 14.4 Plt Count 440 H MPV 8.6 Immature Gran % (Auto) 0.8 H Neut % (Auto) 83.3 H Lymph % (Auto) 9.6 L [place] % (Auto) 5.8 Eos % (Auto) 0.1 Baso % (Auto) 0.4 Lymph # (Auto) 0.71 L [place] # (Auto) 0.4 Eos # (Auto) 0.0 Baso # (Auto) 0.0 Abs Immat Gran (auto) 0.06 H Absolute Neuts (auto) 6.2 Absolute Nucleated RBC 0.040 H Nucleated RBC % 0.5 H Sodium 122 L Potassium 4.3 Chloride 92 L Carbon Dioxide 26 Anion Gap 4 BUN 15 Creatinine 0.90 Estim Creat Clear Calc 83 Estimated GFR > 60 Glucose 108 Calcium 7.4 L Magnesium 2.0 Total Bilirubin 0.2 AST 31 ALT 15 Alkaline Phosphatase 57 Total Protein 5.0 L Albumin 2.4 L Carcinoembryonic Ag 0.8 Microbiology 05/03/24 11:45 Ascites Fluid Anaerobic Culture - Preliminary Post-procedural complaints: none Patient Feedback: Patient satisfied with anesthetic care.
[2024-05-05 14:00] VITALS: BP 135/95; PULSE 88; RESP 20; TEMP 36.4; O2SAT 100
[2024-05-05] MEDS: SODIUM CHLORIDE 0.9% IV 1,000 ML 100 ML IV CONT (14:10)
--- NOTE | 2024-05-05 15:26 | WPDGIPROGNO ---
Progress Note: A&P Assessment and Plan (1) Mass of stomach: Code(s): K31.89 - Other diseases of stomach and duodenum Status: Acute Assessment and Plan: most likely primary, pending biopsies also malignant ascites prognosis is guarded oncology on board diet as tolerated (2) Malignant ascites: Code(s): R18.0 - Malignant ascites Status: Acute (3) Portal vein thrombosis: Code(s): I81 - Portal vein thrombosis Status: Acute Assessment and Plan: on blood thinner by oncology (4) Cirrhosis: Code(s): K74.60 - Unspecified cirrhosis of liver Status: Acute (5) Weight loss: Code(s): R63.4 - Abnormal weight loss Status: Acute (6) Iron deficiency anemia: Code(s): D50.9 - Iron deficiency anemia, unspecified Status: Acute Assessment and Plan: from metastatic disease Subjective Date/time seen: 05/05/24 15:26 Interval history: large gastric mass unable to complete full colonoscopy, sigmoid was normal still poor appetite Review of Systems Review of Systems: All systems reviewed & are unremarkable except as noted in HPI and below Exam Const: General: comfortable and underweight Nutritional Appearance: thin HENMT: Face/Nose/Sinus: Normal nares present Eyes: General: appearance normal, both eyes and all related structures Neck: Neck: supple Resp: Effort & Inspection: normal respiratory effort Cardio: Rate: regular rate GI: GI Palp: Yes Soft to palpation Auscultation: normal bowel sounds Other: noted abnormal induration in mid abdomen, no pain, no guarding s/p paracentesis with flat abdomen Skin: General skin exam: normal color Neuro: Speech: normal speech Motor exam (neuro): 5/5 motor strength present throughout Extrem: General: normal to inspection Psych: Mental Status: mental status grossly normal Objective Data Vital Signs Vital Signs: Vital Signs - 24 hr 05/04/24 15:29 05/04/24 15:39 05/04/24 15:47 Temperature Pulse Rate 92 80 74 Respiratory Rate 20 20 20 Blood Pressure 120/85 123/92 H 146/104 H Pulse Oximetry 100 100 100 Oxygen Delivery Room Air Room Air Room Air 05/04/24 16:00 05/04/24 21:13 05/04/24 20:00 Temperature 98.1 F 98.7 F Pulse Rate 87 100 Respiratory Rate 20 16 Blood Pressure 150/108 H 125/89 Pulse Oximetry 100 100 Oxygen Delivery Room Air 05/05/24 05:53 05/05/24 08:00 05/05/24 14:00 Temperature 99.0 F 97.6 F Pulse Rate 100 88 Respiratory Rate 18 20 Blood Pressure 137/98 H 135/95 H Pulse Oximetry 100 100 Oxygen Delivery Room Air Intake/Output Intake/Output: Intake & Output 05/02/24 05/03/24 05/04/24 05/05/24 23:59 23:59 23:59 23:59 Intake Total 1500 2800.0 1400 Output Total 5000 Balance -3500 2800.0 1400 Meds/Results Medications: Active Medications Generic Name Dose Route Start Last Admin Trade Name Freq PRN Reason Stop Dose Admin Acetaminophen 650 mg 05/03/24 12:01 Acetaminophen 325 Mg Tablet PO Q4H PRN Mild Pain (1-3) or Fever Amlodipine Besylate 5 mg 05/04/24 10:25 05/05/24 09:01 Amlodipine Besylate 5 Mg Tablet PO 5 mg DAILY JEREMY Administration Enoxaparin Sodium 40 mg 05/06/24 09:00 Enoxaparin 40 Mg/0.4 Ml Syringe SUB-Q DAILY JEREMY Ferrous Sulfate 325 mg 05/04/24 17:00 05/05/24 09:01 Ferrous Sulfate [address] PO 325 mg BID JEREMY Administration Sodium Chloride 1,000 mls @ 100 mls/hr 05/03/24 13:00 05/05/24 14:10 Normal Saline Iv IV CONT 100 mls/hr .Q10H JEREMY Administration Morphine Sulfate 2 mg 05/03/24 18:37 05/05/24 12:39 Morphine Sulfate (*Crx) 2 Mg/Ml Inj IV PUSH 2 mg Q4H PRN Administration Pain Rated 7-10 Ondansetron HCl 4 mg 05/03/24 18:37 05/05/24 09:13 Ondansetron Inj 4 Mg/2 Ml Vial IV PUSH 4 mg Q6H PRN Administration Nausea And Vomiting Radiology Results: ITS Impressions Paracentesis Ultrasound 0
[2024-05-05] MEDS: ENOXAPARIN 40 MG/0.4 ML SYRINGE SUB-Q (16:15)
--- NOTE | 2024-05-05 17:04 | WPDPN ---
Progress Note: A&P Assessment and Plan (1) Colon wall thickening: Code(s): K63.9 - Disease of intestine, unspecified Status: Acute (2) Constipation: Code(s): K59.00 - Constipation, unspecified Status: Acute (3) Portal vein thrombosis: Code(s): I81 - Portal vein thrombosis Status: Acute (4) Cirrhosis: Code(s): K74.60 - Unspecified cirrhosis of liver Status: Acute (5) Weight loss: Code(s): R63.4 - Abnormal weight loss Status: Acute (6) Anorexia: Code(s): R63.0 - Anorexia Status: Acute (7) Iron deficiency anemia: Code(s): D50.9 - Iron deficiency anemia, unspecified Status: Acute Plan today patient stats his pain is persisting but tolerable, had paracentesis on 05/03/2024 and 5L was removed, fluids consist of colorectal or appendiceal origin, suspicious for malignancy, primary source is unclear, to further evaluate and find the primary source on 05/04 patient had EGD and colonoscopy which showed a mass in his stomach suspect malignant tumor, and patient is seen by timekeeper oncologist has ordered port placement for the patient and will have pet scan and further recommendation to follow. will continue to monitor. Subjective Date/time seen: 05/05/24 17:04 Interval history: today patient stats his pain is persisting but tolerable, had paracentesis on 05/03/2024 and 5L was removed, fluids consist of colorectal or appendiceal origin, suspicious for malignancy, primary source is unclear, to further evaluate and find the primary source on 05/04 patient had EGD and colonoscopy which showed a mass in his stomach suspect malignant tumor, and patient is seen by timekeeper oncologist has ordered port placement for the patient and will have pet scan and further recommendation to follow. will continue to monitor. Review of Systems Review of Systems: All systems reviewed & are unremarkable except as noted in HPI and below Exam Narrative: Appears chronically ill Patient is comfortable, NAD HEENT: eyes are clear and none icteric LUNGS:CTA HEART: RR S1S2 ABD: BS+, Soft and diffusely tender Lower extremities: no edema SKIN: nonjaundiced Neuro: grossly intact. Objective Data Vital Signs Vital Signs: Vital Signs - 24 hr 05/04/24 21:13 05/04/24 20:00 05/05/24 05:53 Temperature 37.1 C 37.2 C Pulse Rate 100 100 Respiratory Rate 16 18 Blood Pressure 125/89 137/98 H Pulse Oximetry 100 100 Oxygen Delivery Room Air 05/05/24 08:00 05/05/24 14:00 Temperature 36.4 C Pulse Rate 88 Respiratory Rate 20 Blood Pressure 135/95 H Pulse Oximetry 100 Oxygen Delivery Room Air Intake/Output Intake/Output: Intake & Output 05/02/24 05/03/24 05/04/24 05/05/24 23:59 23:59 23:59 23:59 Intake Total 1500 2800.0 1950 Output Total 5000 Balance -3500 2800.0 1950 Meds/Results Medications: Active Medications Generic Name Dose Route Start Last Admin Trade Name Freq PRN Reason Stop Dose Admin Acetaminophen 650 mg 05/03/24 12:01 Acetaminophen 325 Mg Tablet PO Q4H PRN Mild Pain (1-3) or Fever Amlodipine Besylate 5 mg 05/04/24 10:25 05/05/24 09:01 Amlodipine Besylate 5 Mg Tablet PO 5 mg DAILY JEREMY Administration Enoxaparin Sodium 40 mg 05/06/24 09:00 Enoxaparin 40 Mg/0.4 Ml Syringe SUB-Q DAILY JEREMY Fentanyl Citrate 25 mcg 05/05/24 16:20 Fentanyl Citrate Inj (*Crx) 100 Mcg/2 Ml Vial IV PUSH Q2M PRN Pain Ferrous Sulfate 325 mg 05/04/24 17:00 05/05/24 16:15 Ferrous Sulfate [address] PO 325 mg BID JEREMY Administration Sodium Chloride 1,000 mls @ 100 mls/hr 05/03/24 13:00 05/05/24 14:10 Normal Saline Iv IV CONT 100 mls/hr .Q10H JEREMY Administration Lactated Ringer's 1,000 mls @ 30 mls/hr 05/05/24 16:20 Lr - Lactated Ringers Iv IV CONT .Q24H JEREMY Lactated Ringer's 1,000 mls @ 30 mls/hr 05/05/24 16:20 Lr - Lactated
[2024-05-05 20:58] VITALS: BP 132/95; PULSE 102; RESP 20; TEMP 36.6; O2SAT 100
[2024-05-06] VITALS (7 sets, daily range): BP systolic 114–135; BP diastolic 75–88; PULSE 101–111; RESP 18; TEMP 36.9–38.1; O2SAT 99–100
[2024-05-06] MEDS: SODIUM CHLORIDE 0.9% IV 1,000 ML 100 ML IV CONT ×3 (00:22→20:02)
[2024-05-06 06:55] LABS: Basophils Percent Auto 0.5 % (0.2-1.2); Eosinophils Percent Auto 0.5 % (0-4.4); Hematocrit 27.1 % (42.0-52.0); Hemoglobin 8.6 g/dL (14.0-18.0); Immature Granulocyte Absolute 0.12 K/mm3 (0.00-0.031); Immature Granulocyte Percent A 1.4 % (0-0.5); Lymphocytes Absolute Auto 1.04 K/mm3 (0.9-3.2); Mean Corpuscular HGB Conc 31.7 g/dl (32-36); Mean Corpuscular Hemoglobin 24.4 pg (26-34); Mean Platelet Volume 8.6 fl (7.4-10.4); Monocytes Absolute Auto 0.5 K/mm3 (0.1-0.6); Monocytes Percent Auto 5.5 % (2.6-8.5); Neutrophils Percent Auto 80.1 % (45.5-73.1); Nucleated Red Blood Cells Perc 0.3 % (0.0-0.2); Platelet Count Result 417 k/mm3 (150-375); Red Blood Count 3.52 M/mm3 (4.6-6.20); Red Cell Distribution Width 14.7 % (11.5-14.5); White Blood Count 8.7 K/mm3 (4.5-10.0)
--- NOTE | 2024-05-06 07:05 | PC.NURSE ---
RN assumed care and pt had no iv access
[2024-05-06 07:10] LABS: Alanine Aminotransferase 13 U/L (6-50); Albumin Level 2.5 g/dL (3.5-5.1); Alkaline Phosphatase 63 U/L (38-126); Anion Gap 6 mmol/L (4-12); Aspartate Amino Transferase 32 U/L (17-59); Bilirubin,Total 0.1 mg/dL (0.2-1.3); Blood Urea Nitrogen 18 mg/dL (9-20); Calcium 7.6 mg/dL (8.4-10.2); Carbon Dioxide 26 mmol/L (22-30); Chloride 92 mmol/L (98-107); Estimated CRCL calculation 75 ml/min; Estimated Glomerular Filt Rate > 60; Glucose 96 mg/dL (65-110); Magnesium 2.1 mg/dL (1.6-2.3); Potassium 4.7 mmol/L (3.4-5.0); Sodium 124 mmol/L (137-145)
--- NOTE | 2024-05-06 09:08 | PC.NURSE ---
RN spoke with pt regarding NPO stat and informed pt that he is able to take morning meds by mouth with a sip when he's NPO but pt states that he would like to wait until after he gets his port because he doesn't want to run the risk of being sick.
[2024-05-06] MEDS: MORPHINE SULFATE (*CRX) 2 MG/ML INJ IV PUSH ×2 (10:07→17:51)
[2024-05-06] MEDS: ONDANSETRON INJ 4 MG/2 ML VIAL IV PUSH ×2 (10:09→14:04)
[2024-05-06] MEDS: amLODIPine BESYLATE 5 MG TABLET PO (10:10)
--- NOTE | 2024-05-06 11:30 | PM.CNGS ---
Assessment and Plan Assessment and plan (1) Malignant ascites: Code(s): R18.0 - Malignant ascites Status: Acute (2) Mass of stomach: Code(s): K31.89 - Other diseases of stomach and duodenum Status: Acute Assessment and Plan: Pathology is pending (3) Portal vein thrombosis: Code(s): I81 - Portal vein thrombosis Status: Acute (4) Weight loss: Code(s): R63.4 - Abnormal weight loss Status: Acute (5) Encounter for infusaport central venous catheter insertion: Code(s): Z45.2 - Encounter for adjustment and management of vascular access device Status: Acute Assessment and Plan: I discussed the placement of a Port-A-Cath and its use. Procedure, risks, benefits were discussed. The possibility of postoperative pneumothorax was discussed. All questions were answered. Patient agrees to chemotherapy and agrees to going ahead with Port-A-Cath placement. (6) Hyponatremia: Code(s): E87.1 - Hypo-osmolality and hyponatremia Status: Acute Assessment and Plan: Current sodium is 124. Anesthesiologist called me and we discussed this. Although the surgery was planned for this afternoon, it is elective and would be much safer to perform once sodium is more close to the normal range. Patient is lethargic and low-sodium certainly could be contributing to that. Will cancel surgery scheduled for this afternoon. Reschedule when sodium improved. History of Present Illness Consult details Consult date: 05/06/24 Reason for consult: central line (Needs Port-A-Cath for chemotherapy) Requesting physician: Ronny Hughes MD Narrative: Patient is a 28-year-old man who has been producing large amounts of ascites requiring 4-5 L of drainage about weekly. 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 He had an EGD which showed a large mass in his stomach. Biopsies of this were done and pathology is pending. He was seen by Oncology and plans for chemotherapy have been made. Was asked to see the patient in consultation for placement of a Port-A-Cath for vascular access and chemotherapy. Patient tells me that he definitely wants to go ahead with chemotherapy. He has no complaints of rashes or pain associated with the subclavian area or neck on either side. Review of Systems Review of Systems: All systems reviewed & are unremarkable except as noted in HPI and below (HPI and those items noted below) Endocrine: Comments: Sodium very low at 124. Hematologic/Lymphatic: Comments: On apixaban for possible portal vein thrombosis. This has been held. Currently he is on prophylactic dose of Lovenox. [facility] Past Medical History Medical History Anorexia Cirrhosis Iron deficiency anemia Malignant ascites Mass of stomach Weight loss Social History Social History Smoking status: Never smoker Alcohol intake: never Substance use: never Do You Feel Safe in your Home?: Yes Lack of Transportation: No Lack of Food: Never True Current Housing: I Have Housing Concerned About Future Housing: No Difficulty Paying Gas/Electric Bills: YES Difficulty Paying for Meds: No Currently Unemployed: No Education: Decline to Answer Difficulty w/ Childcare or Family Care: No Spiritual care concerns: No Meds Home Medications and Allergies Home Medications Medication Instructions Recorded Confirmed Type amlodipine 5 mg tablet 5 mg PO DAILY 05/04/24 05/04/24 History Allergies Allergy/AdvReac Type Severity Reaction Status Date / Time No Known Allergies Allergy Verified 05/04/24 14:35 Vital Signs Vital Signs - 24 hr 05/05/24 14:00 05/05/24 20:58 05/06/24 06:00 Temperature 36.4 C 36.6 C 37.0 C Pulse Rate 88 102 H 102 H Respiratory Rate 20 20 18 Blood Pressure 135/95 H 132/95 H 135/75 Pulse Oximet
--- NOTE | 2024-05-06 13:49 | PCNFU ---
Nutrition Follow-Up Complete: Severe protein calorie malnutrition related to chronic altered GI function as evidenced by weight loss 20%/6 months; intakes <75% needs >1 month; severe muscle wasting and fat loss Diet advancement Improve PO intake to at least 50% meals and supplements when advanced Goal: Pt current nutrition is NPO for possible port placement. Nutrition recommendation: Regular diet when able to advance. Try nutrition supplements when diet is advanced. Last recorded weight is 55.9 kg. Bowel Motility: +1 BM 05/05/24 Labs Reviewed: Hgb 8.6, Hct 27.1, Alb 2.5, Na 124 Meds Noted: LR, Zofran, NS Skin: WNL Additional Notes: Pt was supposed to have a port placed for chemo, however surgery progress notes say that is not being done. Per care coordination, pt is being discharged. Discussed possibility of feeding tube with patient to see if he wanted to consider the idea and he said he wants to get his treatment first. Not sure he would qualify for a PEG because of ascites. He is very cachectic and malnourished and nutritional status needs to be addressed on addition to his treatments. Monitoring diet orders, weights, labs, plan of care Follow up in 3 days
--- NOTE | 2024-05-06 13:56 | WPDPN ---
Progress Note: A&P Assessment and Plan (1) Colon wall thickening: Code(s): K63.9 - Disease of intestine, unspecified Status: Acute (2) Constipation: Code(s): K59.00 - Constipation, unspecified Status: Acute (3) Portal vein thrombosis: Code(s): I81 - Portal vein thrombosis Status: Acute (4) Cirrhosis: Code(s): K74.60 - Unspecified cirrhosis of liver Status: Acute (5) Weight loss: Code(s): R63.4 - Abnormal weight loss Status: Acute (6) Anorexia: Code(s): R63.0 - Anorexia Status: Acute (7) Iron deficiency anemia: Code(s): D50.9 - Iron deficiency anemia, unspecified Status: Acute (8) Hyponatremia: Code(s): E87.1 - Hypo-osmolality and hyponatremia Status: Acute Plan today patient stats his pain is persisting but tolerable, had paracentesis on 05/03/2024 and 5L was removed, fluids consist of colorectal or appendiceal origin, suspicious for malignancy, primary source is unclear, to further evaluate and find the primary source on 05/04 patient had EGD and colonoscopy which showed a mass in his stomach suspect malignant tumor, and patient is seen by trapper animal oncologist has ordered port placement for the patient and will have pet scan as an outpatient patient sodium is running low most likely 2/2 gastric cancer, I have placed on free fluids restriction and consulted keyseater operator for further recommendation. Subjective Date/time seen: 05/06/24 13:56 Interval history: today patient stats his pain is persisting but tolerable, had paracentesis on 05/03/2024 and 5L was removed, fluids consist of colorectal or appendiceal origin, suspicious for malignancy, primary source is unclear, to further evaluate and find the primary source on 05/04 patient had EGD and colonoscopy which showed a mass in his stomach suspect malignant tumor, and patient is seen by trapper animal oncologist has ordered port placement for the patient and will have pet scan as an outpatient patient sodium is running low most likely 2/2 gastric cancer, I have placed on free fluids restriction and consulted keyseater operator for further recommendation. Review of Systems Review of Systems: All systems reviewed & are unremarkable except as noted in HPI and below Exam Narrative: Appears chronically ill Patient is comfortable, NAD HEENT: eyes are clear and none icteric LUNGS:CTA HEART: RR S1S2 ABD: BS+, Soft and diffusely tender Lower extremities: no edema SKIN: nonjaundiced Neuro: grossly intact. Objective Data Vital Signs Vital Signs: Vital Signs - 24 hr 05/05/24 14:00 05/05/24 20:58 05/06/24 06:00 Temperature 36.4 C 36.6 C 37.0 C Pulse Rate 88 102 H 102 H Respiratory Rate 20 20 18 Blood Pressure 135/95 H 132/95 H 135/75 Pulse Oximetry 100 100 100 Intake/Output Intake/Output: Intake & Output 05/03/24 05/04/24 05/05/24 05/06/24 23:59 23:59 23:59 23:59 Intake Total 1500 2800.0 2190 1550 Output Total 5000 Balance -3500 2800.0 2190 1550 Meds/Results Medications: Active Medications Generic Name Dose Route Start Last Admin Trade Name Freq PRN Reason Stop Dose Admin Acetaminophen 650 mg 05/03/24 12:01 Acetaminophen 325 Mg Tablet PO Q4H PRN Mild Pain (1-3) or Fever Amlodipine Besylate 5 mg 05/04/24 10:25 05/06/24 10:10 Amlodipine Besylate 5 Mg Tablet PO 5 mg DAILY JEREMY Administration Enoxaparin Sodium 40 mg 05/06/24 09:00 Enoxaparin 40 Mg/0.4 Ml Syringe SUB-Q DAILY JEREMY Fentanyl Citrate 25 mcg 05/05/24 16:20 Fentanyl Citrate Inj (*Crx) 100 Mcg/2 Ml Vial IV PUSH Q2M PRN Pain Ferrous Sulfate 325 mg 05/04/24 17:00 05/05/24 16:15 Ferrous Sulfate [address] PO 325 mg BID JEREMY Administration Sodium Chloride 1,000 mls @ 100 mls/hr 05/03/24 13:00 05/06/24 00:22 Normal Saline Iv IV CONT 100 mls/hr .Q10H JEREMY Administration Lactated Ringer's 1,000 mls @ 3
--- NOTE | 2024-05-06 14:27 | PM.CNNEP ---
Assessment and Plan Assessment and plan (1) Hyponatremia: Code(s): E87.1 - Hypo-osmolality and hyponatremia Status: Acute Assessment and Plan: Most likely related to his underlying malignancy as is his most significant risk factor The use of narcotics and pain medications may be playing a role with this issue was present even before this came into play An effort to try to expedite surgical intervention, we will try salt tablets with Lasix and if necessary consider 3% saline. However, how fast he response to these interventions is unclear has GI malignancies are notorious for causing hyponatremia that is difficult to treat. The goal of therapy would try to get his sodium level is close to 130 millimoles per L as possible and go from there I will continue to follow the patient with you while he remains hospitalized and make further recommendations as deemed necessary. Thank you for allowing me to participate in the care of this patient. History of Present Illness Reason for Consult Consult date: 05/06/24 Reason for consult: hyponatremia Chief Complaint Chief complaint: Malignant ascites History of Present Illness Narrative: The patient is a 28-year-old male with a past medical history as outlined below who presented to [facility] Emergency Room with complaints of abdominal pain. The patient states that the abdominal discomfort is described as a tightness that seems to occurred over the last 2 weeks. He was apparently scheduled for an outpatient colonoscopy by Gastroenterology but presented to the ER instead due to the severity of his abdominal pain. Imaging studies demonstrated evidence of significant ascites consistent with his known history of liver cirrhosis. He underwent a successful ultrasound-guided paracentesis prior to his admission with some improvement in his symptoms. However, he still has issues and complaints with regard to nausea, vomiting, and anorexia in association with the abdominal pain went started. On his previous paracentesis, pathology demonstrated evidence of malignancy, possibly colorectal source. Workup and evaluation emergency room is significant for relative anemia, hyponatremia with a sodium 124, and normal liver function tests. A repeat CT scan of the abdomen pelvis demonstrated significant ascites in the pelvis and upper abdomen with possibility of loculation and concern for possible thrombus in the portal vein well as thickening of the wall of the sigmoid colon, constipation, and slightly prominent pancreatic duct. Given his complex history and events recently, he was admitted the hospital for further evaluation therapy. Since his admission, he has been seen by Oncology and felt that he needs to have a port placed for initiation of chemotherapy for his underlying malignancy. Unfortunately, as noted by his admission labs and labs to date, he has has evidence of hyponatremia and this finding is concerning for any possible surgical procedures particularly that require anesthesia. Renal consultation was requested due to his hyponatremia. It would seem his hyponatremia seems to be somewhat chronic and at least during this hospital stay, has been relatively stable although has not really improved either. It does not appear that he has any neurological sequelae related to this issue and the assumption is that his hyponatremia is related to his underlying malignancy as he does not have any other significant risk factors per se. Currently, at the time my evaluation, he appears to be in no acute distress. Review of Systems Review of Systems: As per HPI. [facility] Past Medical History Medical History (Updated 05/11/24 @ 14:49 by Deny Gordon MD) Anorexia Cirrhosis Iron deficiency anemia Malignant ascites Mass of stomach Stomach cancer Weight loss Social History Social History Smoking statu
--- NOTE | 2024-05-06 14:42 | WPDGIPROGNO ---
Progress Note: A&P Assessment and Plan (1) Mass of stomach: Code(s): K31.89 - Other diseases of stomach and duodenum Status: Acute Assessment and Plan: most likely primary, pending biopsies also malignant ascites prognosis is guarded oncology on board, surgery to place port-a-cath diet as tolerated (2) Malignant ascites: Code(s): R18.0 - Malignant ascites Status: Acute Assessment and Plan: better after paracentesis will follow as needed (3) Portal vein thrombosis: Code(s): I81 - Portal vein thrombosis Status: Acute Assessment and Plan: on blood thinner by oncology (4) Cirrhosis: Code(s): K74.60 - Unspecified cirrhosis of liver Status: Acute (5) Weight loss: Code(s): R63.4 - Abnormal weight loss Status: Acute (6) Iron deficiency anemia: Code(s): D50.9 - Iron deficiency anemia, unspecified Status: Acute Assessment and Plan: from metastatic disease Subjective Date/time seen: 05/06/24 14:42 Interval history: no changes, he is eating Review of Systems Review of Systems: All systems reviewed & are unremarkable except as noted in HPI and below Exam Const: General: comfortable and underweight Nutritional Appearance: thin HENMT: Face/Nose/Sinus: Normal nares present Eyes: General: appearance normal, both eyes and all related structures Neck: Neck: supple Resp: Effort & Inspection: normal respiratory effort Cardio: Rate: regular rate GI: GI Palp: Yes Soft to palpation Auscultation: normal bowel sounds Other: noted abnormal induration in mid abdomen, no pain, no guarding s/p paracentesis with flat abdomen Skin: General skin exam: normal color Neuro: Speech: normal speech Motor exam (neuro): 5/5 motor strength present throughout Extrem: General: normal to inspection Psych: Mental Status: mental status grossly normal Objective Data Vital Signs Vital Signs: Vital Signs - 24 hr 05/05/24 20:58 05/06/24 06:00 Temperature 97.8 F 98.6 F Pulse Rate 102 H 102 H Respiratory Rate 20 18 Blood Pressure 132/95 H 135/75 Pulse Oximetry 100 100 Intake/Output Intake/Output: Intake & Output 05/03/24 05/04/24 05/05/24 05/06/24 23:59 23:59 23:59 23:59 Intake Total 1500 2800.0 2190 1550 Output Total 5000 Balance -3500 2800.0 2190 1550 Meds/Results Medications: Active Medications Generic Name Dose Route Start Last Admin Trade Name Freq PRN Reason Stop Dose Admin Acetaminophen 650 mg 05/03/24 12:01 Acetaminophen 325 Mg Tablet PO Q4H PRN Mild Pain (1-3) or Fever Amlodipine Besylate 5 mg 05/04/24 10:25 05/06/24 10:10 Amlodipine Besylate 5 Mg Tablet PO 5 mg DAILY JEREMY Administration Enoxaparin Sodium 40 mg 05/06/24 09:00 Enoxaparin 40 Mg/0.4 Ml Syringe SUB-Q DAILY JEREMY Fentanyl Citrate 25 mcg 05/05/24 16:20 Fentanyl Citrate Inj (*Crx) 100 Mcg/2 Ml Vial IV PUSH Q2M PRN Pain Ferrous Sulfate 325 mg 05/04/24 17:00 05/05/24 16:15 Ferrous Sulfate [address] PO 325 mg BID JEREMY Administration Sodium Chloride 1,000 mls @ 100 mls/hr 05/03/24 13:00 05/06/24 00:22 Normal Saline Iv IV CONT 100 mls/hr .Q10H JEREMY Administration Lactated Ringer's 1,000 mls @ 30 mls/hr 05/05/24 16:20 Lr - Lactated Ringers Iv IV CONT .Q24H JEREMY Lactated Ringer's 1,000 mls @ 30 mls/hr 05/05/24 16:20 Lr - Lactated Ringers Iv IV CONT .Q24H JEREMY Morphine Sulfate 2 mg 05/03/24 18:37 05/06/24 10:07 Morphine Sulfate (*Crx) 2 Mg/Ml Inj IV PUSH 2 mg Q4H PRN Administration Pain Rated 7-10 Ondansetron HCl 4 mg 05/03/24 18:37 05/06/24 10:09 Ondansetron Inj 4 Mg/2 Ml Vial IV PUSH 4 mg Q6H PRN Administration Nausea And Vomiting Ondansetron HCl 4 mg 05/05/24 16:20 05/06/24 14:04 Ondansetron Inj 4 Mg/2 Ml Vial IV PUSH 4 mg ONCE PRN Administration Nausea Oxycodone HCl
[2024-05-06] MEDS: SODIUM CHLORIDE 1 GM TABLET PO (17:44)
[2024-05-06] MEDS: BISACODYL 5 MG TABLET EC PO (17:44)
[2024-05-06] MEDS: SIMETHICONE 80 MG TAB.CHEW PO ×2 (17:44→19:59)
[2024-05-06] MEDS: FERROUS SULFATE 325 MG TABLET DR PO (17:45)
[2024-05-06] MEDS: ACETAMINOPHEN 325 MG TABLET 650 MG PO (19:59)
[2024-05-07 00:43] LABS: Anion Gap 4 mmol/L (4-12); Blood Urea Nitrogen 19 mg/dL (9-20); Calcium 7.8 mg/dL (8.4-10.2); Carbon Dioxide 23 mmol/L (22-30); Chloride 95 mmol/L (98-107); Estimated CRCL calculation 75 ml/min; Estimated Glomerular Filt Rate > 60; Glucose 101 mg/dL (65-110); Potassium 4.6 mmol/L (3.4-5.0); Sodium 122 mmol/L (137-145)
[2024-05-07] MEDS: MORPHINE SULFATE (*CRX) 2 MG/ML INJ IV PUSH ×2 (02:28→10:59)
[2024-05-07 03:06] LABS: Total Protein Urine Random 7 mg/dL
[2024-05-07 03:12] LABS: Total Protein Urine Random 7 mg/dL; Urea Random Urine 1735 MG/DL
[2024-05-07 03:17] LABS: Sodium Urine Random 5 meq/L
[2024-05-07 03:28] LABS: Creatinine Urine 293.7 mg/dL; Ur Ttl Prot Creatinine Ratio 0.02 mg/mg (0-0.20)
[2024-05-07 03:29] LABS: Creatinine Urine 285.6 mg/dL
[2024-05-07] MEDS: SODIUM CHLORIDE 0.9% IV 1,000 ML 100 ML IV CONT (05:44)
[2024-05-07] MEDS: amLODIPine BESYLATE 5 MG TABLET PO (05:44)
[2024-05-07 06:00] VITALS: BP 140/101; PULSE 99; RESP 16; TEMP 37.2; O2SAT 100
[2024-05-07 06:18] LABS: Total Protein Peritoneal Fluid 3.6 g/dL
[2024-05-07 07:14] LABS: Basophils Absolute Auto 0.1 K/mm3 (0.0-0.1); Basophils Percent Auto 0.6 % (0.2-1.2); Eosinophils Percent Auto 0.4 % (0-4.4); Hemoglobin 7.8 g/dL (14.0-18.0); Immature Granulocyte Absolute 0.13 K/mm3 (0.00-0.031); Immature Granulocyte Percent A 1.7 % (0-0.5); Lymphocytes Absolute Auto 0.84 K/mm3 (0.9-3.2); Lymphocytes Percent Auto 10.8 % (18.3-44.2); Mean Corpuscular HGB Conc 32.5 g/dl (32-36); Mean Corpuscular Hemoglobin 25.2 pg (26-34); Mean Corpuscular Volume 77.4 fl (80-100); Mean Platelet Volume 8.8 fl (7.4-10.4); Monocytes Absolute Auto 0.5 K/mm3 (0.1-0.6); Monocytes Percent Auto 6.1 % (2.6-8.5); Neutrophils Absolute Auto 6.3 K/mm3 (1.3-6.7); Neutrophils Percent Auto 80.4 % (45.5-73.1); Nucleated Red Blood Cells Perc 0.4 % (0.0-0.2); Platelet Count Result 378 k/mm3 (150-375); Red Cell Distribution Width 14.9 % (11.5-14.5); White Blood Count 7.8 K/mm3 (4.5-10.0)
[2024-05-07 07:22] LABS: Alanine Aminotransferase 14 U/L (6-50); Albumin Level 2.4 g/dL (3.5-5.1); Alkaline Phosphatase 62 U/L (38-126); Anion Gap 7 mmol/L (4-12); Aspartate Amino Transferase 32 U/L (17-59); Bilirubin,Total 0.1 mg/dL (0.2-1.3); Blood Urea Nitrogen 19 mg/dL (9-20); Calcium 7.8 mg/dL (8.4-10.2); Carbon Dioxide 23 mmol/L (22-30); Chloride 93 mmol/L (98-107); Estimated CRCL calculation 75 ml/min; Estimated Glomerular Filt Rate > 60; Glucose 115 mg/dL (65-110); Potassium 4.7 mmol/L (3.4-5.0); Sodium 123 mmol/L (137-145)
[2024-05-07] MEDS: ONDANSETRON INJ 4 MG/2 ML VIAL IV PUSH ×2 (08:10→14:20)
[2024-05-07] MEDS: ENOXAPARIN 40 MG/0.4 ML SYRINGE SUB-Q (08:11)
[2024-05-07] MEDS: SODIUM CHLORIDE 1 GM TABLET PO ×2 (08:12→17:11)
[2024-05-07] MEDS: BISACODYL 5 MG TABLET EC PO (08:12)
[2024-05-07] MEDS: SIMETHICONE 80 MG TAB.CHEW PO ×4 (08:12→20:18)
[2024-05-07] MEDS: FERROUS SULFATE 325 MG TABLET DR PO ×2 (08:12→17:11)
[2024-05-07] MEDS: FUROSEMIDE INJ 40 MG/4 ML VIAL 20 MG IV PUSH ×2 (09:29→09:30)
--- NOTE | 2024-05-07 10:00 | PM.PNNEP ---
Progress Note: A&P Assessment and Plan (1) Hyponatremia: Code(s): E87.1 - Hypo-osmolality and hyponatremia Status: Acute Assessment and Plan: Most likely related to his underlying malignancy as is his most significant risk factor The use of narcotics and pain medications may be playing a role with this issue was present even before this came into play An effort to try to expedite surgical intervention, we will try salt tablets with Lasix and if necessary consider 3% saline. However, how fast he response to these interventions is unclear has GI malignancies are notorious for causing hyponatremia that is difficult to treat. The goal of therapy would try to get his sodium level is close to 130 millimoles per L as possible and go from there Will continue to follow. Subjective Date/time seen: 05/07/24 10:00 Interval history: Follow-up for hyponatremia (acute versus chronic versus acute on chronic?) Started on salt tablets yesterday afternoon in an attempt to improve serum sodium level; sodium this AM about the same/no significant difference; still with on/off pain; no other acute issues noted at this time. Exam Narrative: General: thin male in NAD Heart: normal S1 and S2; no rub Lungs: clear to auscultation Abdomen: soft, nontender, mild distension, positive bowel sounds Extremities: no cyanosis or clubbing; no edema Skin: warm and dry Objective Data Vital Signs Vital Signs: Vital Signs Temp Pulse Resp BP Pulse Ox O2 Del Method 05/07/24 08:00 Room Air 05/07/24 06:00 98.9 F 99 16 140/101 H 100 05/06/24 22:50 98.5 F 05/06/24 21:00 99.3 F 05/06/24 15:53 99.3 F 05/06/24 20:00 Room Air 05/06/24 20:00 100.5 F H 111 H 18 120/86 100 05/06/24 19:59 100.5 F H Intake/Output Intake/Output: Intake & Output 05/04/24 05/05/24 05/06/24 05/07/24 23:59 23:59 23:59 23:59 Intake Total 2800.0 2190 3260 1710 Output Total 200 Balance 2800.0 2190 3260 1510 Meds/Results Medications: Active Medications Generic Name Dose Route Start Last Admin Trade Name Freq PRN Reason Stop Dose Admin Acetaminophen 650 mg 05/03/24 12:01 05/06/24 19:59 Acetaminophen 325 Mg Tablet PO 650 mg Q4H PRN Administration Mild Pain (1-3) or Fever Hydrocodone Bitart/Acetaminophen 1 tab 05/07/24 11:42 Hydrocodone/Acetaminophen (*Crx) 5-325 Mg Tablet PO Q4H PRN Pain Rated 4-6 Amlodipine Besylate 5 mg 05/04/24 10:25 05/07/24 05:44 Amlodipine Besylate 5 Mg Tablet PO 5 mg DAILY JEREMY Administration Bisacodyl 5 mg 05/07/24 09:00 05/07/24 08:12 Bisacodyl 5 Mg Tablet Ec PO 5 mg QAM JEREMY Administration Enoxaparin Sodium 40 mg 05/06/24 09:00 05/07/24 08:11 Enoxaparin 40 Mg/0.4 Ml Syringe SUB-Q 40 mg DAILY JEREMY Administration Fentanyl Citrate 25 mcg 05/05/24 16:20 Fentanyl Citrate Inj (*Crx) 100 Mcg/2 Ml Vial IV PUSH Q2M PRN Pain Ferrous Sulfate 325 mg 05/04/24 17:00 05/07/24 08:12 Ferrous Sulfate [address] PO 325 mg BID JEREMY Administration Morphine Sulfate 2 mg 05/07/24 11:43 Morphine Sulfate (*Crx) 2 Mg/Ml Inj IV PUSH Q8HR PRN Pain Rated 7-10 Ondansetron HCl 4 mg 05/03/24 18:37 05/07/24 14:20 Ondansetron Inj 4 Mg/2 Ml Vial IV PUSH 4 mg Q6H PRN Administration Nausea And Vomiting Ondansetron HCl 4 mg 05/05/24 16:20 05/06/24 14:04 Ondansetron Inj 4 Mg/2 Ml Vial IV PUSH 4 mg ONCE PRN Administration Nausea Oxycodone HCl 5 mg 05/05/24 16:20 Oxycodone Hcl (*Crx) 5 Mg Tab Ir PO ONCE PRN Pain Simethicone 80 mg 05/06/24 17:10 05/07/24 14:20 Simethicone 80 Mg Tab.Chew PO 80 mg QID JEREMY Administration Sodium Chloride 1 gm 05/06/24 17:00 05/07/24 08:12 Sodium Chloride 1 Gm Tablet PO 1 gm BID JEREMY Administration Radiology Results: ITS Impressions Paracentesis Ultrasou
[2024-05-07 14:00] VITALS: BP 138/96; PULSE 101; RESP 18; TEMP 36.8; O2SAT 100
[2024-05-07 14:44] LABS: Anion Gap 8 mmol/L (4-12); Blood Urea Nitrogen 20 mg/dL (9-20); Calcium 7.8 mg/dL (8.4-10.2); Carbon Dioxide 24 mmol/L (22-30); Chloride 92 mmol/L (98-107); Estimated CRCL calculation 75 ml/min; Estimated Glomerular Filt Rate > 60; Glucose 106 mg/dL (65-110); Potassium 4.8 mmol/L (3.4-5.0); Sodium 124 mmol/L (137-145)
--- NOTE | 2024-05-07 16:25 | WPDPN ---
Progress Note: A&P Assessment and Plan (1) Colon wall thickening: Code(s): K63.9 - Disease of intestine, unspecified Status: Acute (2) Constipation: Code(s): K59.00 - Constipation, unspecified Status: Acute (3) Portal vein thrombosis: Code(s): I81 - Portal vein thrombosis Status: Acute (4) Cirrhosis: Code(s): K74.60 - Unspecified cirrhosis of liver Status: Acute (5) Weight loss: Code(s): R63.4 - Abnormal weight loss Status: Acute (6) Anorexia: Code(s): R63.0 - Anorexia Status: Acute (7) Iron deficiency anemia: Code(s): D50.9 - Iron deficiency anemia, unspecified Status: Acute (8) Hyponatremia: Code(s): E87.1 - Hypo-osmolality and hyponatremia Status: Acute Plan today patient is somnolent, he was given pain medication, had paracentesis on 05/03/2024 and 5L was removed, fluids consist of colorectal or appendiceal origin, suspicious for malignancy, primary source is unclear, to further evaluate and find the primary source on 05/04 patient had EGD and colonoscopy which showed a mass in his stomach suspect malignant tumor, and patient is seen by enterer oncologist has ordered port placement for the patient and will have pet scan as an outpatient, patient sodium is running low most likely 2/2 gastric cancer, I have placed the patient on free fluids restriction however patient PO intake is very poor, discussed with Dr. Boyer started the patient on Salt tablet 1g BID, will monitor. today patient parents are present in the room and gave them updates and answer their questions. Subjective Date/time seen: 05/07/24 16:25 Interval history: today patient is somnolent, he was given pain medication, had paracentesis on 05/03/2024 and 5L was removed, fluids consist of colorectal or appendiceal origin, suspicious for malignancy, primary source is unclear, to further evaluate and find the primary source on 05/04 patient had EGD and colonoscopy which showed a mass in his stomach suspect malignant tumor, and patient is seen by enterer oncologist has ordered port placement for the patient and will have pet scan as an outpatient, patient sodium is running low most likely 2/2 gastric cancer, I have placed the patient on free fluids restriction however patient PO intake is very poor, discussed with Dr. Boyer started the patient on Salt tablet 1g BID, will monitor. today patient parents are present in the room and gave them updates and answer their questions. Review of Systems Review of Systems: All systems reviewed & are unremarkable except as noted in HPI and below Exam Narrative: Appears chronically ill Patient is comfortable, NAD HEENT: eyes are clear and none icteric LUNGS:CTA HEART: RR S1S2 ABD: BS+, Soft and diffusely tender Lower extremities: no edema SKIN: nonjaundiced Neuro: grossly intact. Objective Data Vital Signs Vital Signs: Vital Signs - 24 hr 05/06/24 19:59 05/06/24 20:00 05/06/24 20:00 Temperature 38.1 C H 38.1 C H Pulse Rate 111 H Respiratory Rate 18 Blood Pressure 120/86 Pulse Oximetry 100 Oxygen Delivery Room Air 05/06/24 21:00 05/06/24 22:50 05/07/24 06:00 Temperature 37.4 C 36.9 C 37.2 C Pulse Rate 99 Respiratory Rate 16 Blood Pressure 140/101 H Pulse Oximetry 100 Oxygen Delivery 05/07/24 08:00 Temperature Pulse Rate Respiratory Rate Blood Pressure Pulse Oximetry Oxygen Delivery Room Air Intake/Output Intake/Output: Intake & Output 05/04/24 05/05/24 05/06/24 05/07/24 23:59 23:59 23:59 23:59 Intake Total 2800.0 2190 3260 2698.3 Output Total 200 Balance 2800.0 2190 3260 2498.3 Meds/Results Medications: Active Medications Generic Name Dose Route Start Last Admin Trade Name Freq PRN Reason Stop Dose Admin Acetaminophen 650 mg 05/03/24 12:01 05/06/24 19:59 Acetaminophen 325 Mg Tablet PO 650 mg Q4H PRN Admi
[2024-05-07] MEDS: HYDROcodone/acetaminophen (*CRX) 5-325 MG TABLET 1 TAB PO (17:10)
[2024-05-07 21:21] LABS: Sodium 122 mmol/L (137-145)
[2024-05-07 21:30] VITALS: BP 119/85; PULSE 94; RESP 14; TEMP 36.4; O2SAT 98
[2024-05-08 05:39] VITALS: BP 138/99; PULSE 94; RESP 14; TEMP 36.1; O2SAT 96
[2024-05-08 06:59] LABS: Glucose Peritoneal Fluid 77 mg/dL
[2024-05-08 07:20] LABS: Basophils Percent Auto 0.4 % (0.2-1.2); Eosinophils Percent Auto 0.4 % (0-4.4); Hematocrit 26.6 % (42.0-52.0); Hemoglobin 8.2 g/dL (14.0-18.0); Immature Granulocyte Absolute 0.17 K/mm3 (0.00-0.031); Immature Granulocyte Percent A 2.1 % (0-0.5); Lymphocytes Absolute Auto 0.87 K/mm3 (0.9-3.2); Lymphocytes Percent Auto 10.7 % (18.3-44.2); Mean Corpuscular HGB Conc 30.8 g/dl (32-36); Mean Corpuscular Hemoglobin 24.8 pg (26-34); Mean Corpuscular Volume 80.6 fl (80-100); Monocytes Absolute Auto 0.6 K/mm3 (0.1-0.6); Monocytes Percent Auto 6.8 % (2.6-8.5); Neutrophils Absolute Auto 6.5 K/mm3 (1.3-6.7); Neutrophils Percent Auto 79.6 % (45.5-73.1); Platelet Count Result 380 k/mm3 (150-375); Red Cell Distribution Width 16.2 % (11.5-14.5); White Blood Count 8.1 K/mm3 (4.5-10.0)
[2024-05-08 07:25] LABS: Alanine Aminotransferase 15 U/L (6-50); Albumin Level 2.8 g/dL (3.5-5.1); Alkaline Phosphatase 71 U/L (38-126); Anion Gap 10 mmol/L (4-12); Aspartate Amino Transferase 36 U/L (17-59); Bilirubin,Total 0.2 mg/dL (0.2-1.3); Blood Urea Nitrogen 23 mg/dL (9-20); Calcium 7.9 mg/dL (8.4-10.2); Carbon Dioxide 23 mmol/L (22-30); Chloride 90 mmol/L (98-107); Estimated CRCL calculation 83 ml/min; Estimated Glomerular Filt Rate > 60; Glucose 107 mg/dL (65-110); Magnesium 2.1 mg/dL (1.6-2.3); Potassium 4.6 mmol/L (3.4-5.0); Sodium 123 mmol/L (137-145)
[2024-05-08] MEDS: MORPHINE SULFATE (*CRX) 2 MG/ML INJ IV PUSH ×2 (09:55→19:38)
[2024-05-08] MEDS: ONDANSETRON INJ 4 MG/2 ML VIAL IV PUSH ×2 (09:55→17:32)
[2024-05-08] MEDS: SODIUM CHLORIDE 0.9% IV 1,000 ML 75 ML IV CONT (11:18)
[2024-05-08] MEDS: ENOXAPARIN 40 MG/0.4 ML SYRINGE SUB-Q (11:18)
[2024-05-08] MEDS: FUROSEMIDE 20 MG TABLET PO ×2 (11:19→17:29)
[2024-05-08] MEDS: SIMETHICONE 80 MG TAB.CHEW PO ×4 (11:19→19:40)
[2024-05-08] MEDS: amLODIPine BESYLATE 5 MG TABLET PO (11:19)
[2024-05-08] MEDS: FERROUS SULFATE 325 MG TABLET DR PO ×2 (11:19→17:29)
[2024-05-08] MEDS: BISACODYL 5 MG TABLET EC PO (11:19)
[2024-05-08 12:32] LABS: Sodium 122 mmol/L (137-145)
[2024-05-08 14:00] VITALS: BP 136/96; PULSE 90; RESP 14; TEMP 36.7; O2SAT 96
[2024-05-08] MEDS: LIDOCAINE 5% PATCH 1 PATCH TRANSDERM (14:00)
--- NOTE | 2024-05-08 15:05 | WPDPN ---
Progress Note: A&P Assessment and Plan (1) Colon wall thickening: Code(s): K63.9 - Disease of intestine, unspecified Status: Acute (2) Constipation: Code(s): K59.00 - Constipation, unspecified Status: Acute (3) Portal vein thrombosis: Code(s): I81 - Portal vein thrombosis Status: Acute (4) Cirrhosis: Code(s): K74.60 - Unspecified cirrhosis of liver Status: Acute (5) Weight loss: Code(s): R63.4 - Abnormal weight loss Status: Acute (6) Anorexia: Code(s): R63.0 - Anorexia Status: Acute (7) Iron deficiency anemia: Code(s): D50.9 - Iron deficiency anemia, unspecified Status: Acute (8) Hyponatremia: Code(s): E87.1 - Hypo-osmolality and hyponatremia Status: Acute Plan today patient is somnolent, he was given pain medication, had paracentesis on 05/03/2024 and 5L was removed, fluids consist of colorectal or appendiceal origin, suspicious for malignancy, primary source is unclear, to further evaluate and find the primary source on 05/04 patient had EGD and colonoscopy which showed a mass in his stomach suspect malignant tumor, and patient is seen by distance learning unit leader oncologist has ordered port placement for the patient and will have pet scan as an outpatient, patient sodium is running low most likely 2/2 gastric cancer, I have placed the patient on free fluids restriction however patient PO intake is very poor, discussed with Dr. Boyer started the patient on Salt tablet 1g BID, however patient is unable to swallow the pills, will start the normal saline at 75 cc an hour, will monitor. today patient parents are present in the room and gave them updates and answer their questions. Subjective Date/time seen: 05/08/24 15:05 Interval history: today patient is somnolent, he was given pain medication, had paracentesis on 05/03/2024 and 5L was removed, fluids consist of colorectal or appendiceal origin, suspicious for malignancy, primary source is unclear, to further evaluate and find the primary source on 05/04 patient had EGD and colonoscopy which showed a mass in his stomach suspect malignant tumor, and patient is seen by distance learning unit leader oncologist has ordered port placement for the patient and will have pet scan as an outpatient, patient sodium is running low most likely 2/2 gastric cancer, I have placed the patient on free fluids restriction however patient PO intake is very poor, discussed with Dr. Boyer started the patient on Salt tablet 1g BID, however patient is unable to swallow the pills, will start the normal saline at 75 cc an hour, will monitor. today patient parents are present in the room and gave them updates and answer their questions. Review of Systems Review of Systems: All systems reviewed & are unremarkable except as noted in HPI and below Exam Narrative: Appears chronically ill Patient is comfortable, NAD HEENT: eyes are clear and none icteric LUNGS:CTA HEART: RR S1S2 ABD: BS+, Soft and diffusely tender Lower extremities: no edema SKIN: nonjaundiced Neuro: grossly intact. Objective Data Vital Signs Vital Signs: Vital Signs - 24 hr 05/07/24 21:30 05/07/24 20:00 05/08/24 05:39 Temperature 36.4 C L 36.1 C L Pulse Rate 94 94 Respiratory Rate 14 14 Blood Pressure 119/85 138/99 H Pulse Oximetry 98 96 Oxygen Delivery Room Air 05/08/24 07:55 Temperature Pulse Rate Respiratory Rate Blood Pressure Pulse Oximetry Oxygen Delivery Room Air Intake/Output Intake/Output: Intake & Output 05/05/24 05/06/24 05/07/24 05/08/24 23:59 23:59 23:59 23:59 Intake Total 2190 3260 2698.3 120 Output Total 200 Balance 2190 3260 2498.3 120 Meds/Results Medications: Active Medications Generic Name Dose Route Start Last Admin Trade Name Freq PRN Reason Stop Dose Admin Acetaminophen 650 mg 05/03/24 12:01 05/06/24 19:59 Acetaminophen 325 Mg Tablet PO 650 mg Q4H PRN Admi
--- NOTE | 2024-05-08 15:24 | PM.PNNEP ---
Progress Note: A&P Assessment and Plan (1) Hyponatremia: Code(s): E87.1 - Hypo-osmolality and hyponatremia Status: Acute Assessment and Plan: Most likely related to his underlying malignancy as is his most significant risk factor The use of narcotics and pain medications may be playing a role with this issue was present even before this came into play An effort to try to expedite surgical intervention, we will try salt tablets with Lasix and if necessary consider 3% saline. However, how fast he response to these interventions is unclear has GI malignancies are notorious for causing hyponatremia that is difficult to treat. The goal of therapy would try to get his sodium level is close to 130 millimoles per L as possible and go from there Will continue to follow. Subjective Date/time seen: 05/08/24 15:24 Interval history: Follow-up for hyponatremia (acute versus chronic versus acute on chronic?) No real significant change in sodium level despite all interventions to date -- however, informed by nursing staff that the patient was not taking the salt tablets as it was too difficult for him to swallow -- started back on normal saline IVFs (as a substitute for for salt tabs); reported vision issues so CT of head done which was negative for any acute findings. Exam Narrative: General: thin male in NAD Heart: normal S1 and S2; no rub Lungs: clear to auscultation Abdomen: soft, nontender, mild distension, positive bowel sounds Extremities: no cyanosis or clubbing; no edema Skin: warm and intact Objective Data Vital Signs Vital Signs: Vital Signs Temp Pulse Resp BP Pulse Ox O2 Del Method 05/08/24 07:55 Room Air 05/08/24 05:39 97.0 F L 94 14 138/99 H 96 05/07/24 20:00 Room Air 05/07/24 21:30 97.5 F L 94 14 119/85 98 Intake/Output Intake/Output: Intake & Output 05/05/24 05/06/24 05/07/24 05/08/24 23:59 23:59 23:59 23:59 Intake Total 2190 3260 2698.3 120 Output Total 200 Balance 2190 3260 2498.3 120 Meds/Results Medications: Active Medications Generic Name Dose Route Start Last Admin Trade Name Freq PRN Reason Stop Dose Admin Acetaminophen 650 mg 05/03/24 12:01 05/06/24 19:59 Acetaminophen 325 Mg Tablet PO 650 mg Q4H PRN Administration Mild Pain (1-3) or Fever Hydrocodone Bitart/Acetaminophen 1 tab 05/07/24 11:42 05/07/24 17:10 Hydrocodone/Acetaminophen (*Crx) 5-325 Mg Tablet PO 1 tab Q4H PRN Administration Pain Rated 4-6 Amlodipine Besylate 5 mg 05/04/24 10:25 05/08/24 11:19 Amlodipine Besylate 5 Mg Tablet PO 5 mg DAILY JEERMY Administration Bisacodyl 5 mg 05/07/24 09:00 05/08/24 11:19 Bisacodyl 5 Mg Tablet Ec PO 5 mg QAM JEREMY Administration Enoxaparin Sodium 40 mg 05/06/24 09:00 05/08/24 11:18 Enoxaparin 40 Mg/0.4 Ml Syringe SUB-Q 40 mg DAILY JEREMY Administration Fentanyl Citrate 25 mcg 05/05/24 16:20 Fentanyl Citrate Inj (*Crx) 100 Mcg/2 Ml Vial IV PUSH Q2M PRN Pain Ferrous Sulfate 325 mg 05/04/24 17:00 05/08/24 17:29 Ferrous Sulfate [address] PO 325 mg BID JEREMY Administration Furosemide 20 mg 05/08/24 09:00 05/08/24 17:29 Furosemide 20 Mg Tablet PO 20 mg BID JEREMY Administration Sodium Chloride 1,000 mls @ 75 mls/hr 05/08/24 09:50 05/08/24 11:18 Normal Saline Iv IV CONT 75 mls/hr .[id number] JEREMY Administration Lidocaine 1 patch 05/08/24 13:40 05/08/24 14:00 Lidocaine 5% Patch TRANSDERM 1 patch DAILY JEREMY Administration Morphine Sulfate 2 mg 05/07/24 11:43 05/08/24 09:55 Morphine Sulfate (*Crx) 2 Mg/Ml Inj IV PUSH 2 mg Q8HR PRN Administration Pain Rated 7-10 Ondansetron HCl 4 mg 05/03/24 18:37 05/08/24 17:32 Ondansetron Inj 4 Mg/2 Ml Vial IV PUSH 4 mg Q6H PRN Administration Nausea And Vomiting Ondansetron HCl 4 mg 05/05/24 16:20 05/06/24 14:04 Ondansetron Inj
[2024-05-08 18:56] LABS: Sodium 123 mmol/L (137-145)
[2024-05-08] MEDS: SODIUM CHLORIDE 3% 150 ML 50 ML IV CONT (20:29)
[2024-05-08 21:45] VITALS: BP 125/93; PULSE 101; RESP 17; TEMP 37.1; O2SAT 100
[2024-05-09 00:50] LABS: Sodium 125 mmol/L (137-145)
[2024-05-09 05:24] VITALS: BP 118/87; PULSE 96; RESP 16; TEMP 36.7; O2SAT 100
[2024-05-09] MEDS: HYDROcodone/acetaminophen (*CRX) 5-325 MG TABLET 1 TAB PO ×2 (07:36→12:37)
[2024-05-09 07:43] LABS: Basophils Percent Auto 0.3 % (0.2-1.2); Eosinophils Percent Auto 0.3 % (0-4.4); Hematocrit 24.4 % (42.0-52.0); Hemoglobin 7.8 g/dL (14.0-18.0); Immature Granulocyte Absolute 0.12 K/mm3 (0.00-0.031); Immature Granulocyte Percent A 1.9 % (0-0.5); Lymphocytes Absolute Auto 0.79 K/mm3 (0.9-3.2); Lymphocytes Percent Auto 12.5 % (18.3-44.2); Mean Corpuscular Hemoglobin 25.3 pg (26-34); Mean Corpuscular Volume 79.2 fl (80-100); Mean Platelet Volume 8.7 fl (7.4-10.4); Monocytes Absolute Auto 0.5 K/mm3 (0.1-0.6); Monocytes Percent Auto 7.4 % (2.6-8.5); Neutrophils Absolute Auto 4.9 K/mm3 (1.3-6.7); Neutrophils Percent Auto 77.6 % (45.5-73.1); Nucleated Red Blood Cells Perc 0.3 % (0.0-0.2); Platelet Count Result 408 k/mm3 (150-375); Red Blood Count 3.08 M/mm3 (4.6-6.20); Red Cell Distribution Width 17.6 % (11.5-14.5); White Blood Count 6.3 K/mm3 (4.5-10.0)
[2024-05-09 08:11] LABS: Alanine Aminotransferase 16 U/L (6-50); Albumin Level 2.7 g/dL (3.5-5.1); Alkaline Phosphatase 71 U/L (38-126); Anion Gap 9 mmol/L (4-12); Aspartate Amino Transferase 38 U/L (17-59); Bilirubin,Total 0.2 mg/dL (0.2-1.3); Blood Urea Nitrogen 24 mg/dL (9-20); Carbon Dioxide 24 mmol/L (22-30); Chloride 92 mmol/L (98-107); Estimated CRCL calculation 83 ml/min; Estimated Glomerular Filt Rate > 60; Glucose 91 mg/dL (65-110); Potassium 4.3 mmol/L (3.4-5.0); Sodium 125 mmol/L (137-145)
[2024-05-09] MEDS: LIDOCAINE 5% PATCH 1 PATCH TRANSDERM (09:12)
[2024-05-09] MEDS: ENOXAPARIN 40 MG/0.4 ML SYRINGE SUB-Q (09:15)
[2024-05-09] MEDS: FUROSEMIDE 20 MG TABLET PO ×2 (09:18→17:00)
[2024-05-09] MEDS: SODIUM CHLORIDE 1 GM TABLET PO (09:18)
[2024-05-09] MEDS: amLODIPine BESYLATE 5 MG TABLET PO (09:18)
[2024-05-09] MEDS: FERROUS SULFATE 325 MG TABLET DR PO ×2 (09:18→17:00)
[2024-05-09] MEDS: SIMETHICONE 80 MG TAB.CHEW PO ×4 (09:19→21:06)
[2024-05-09] MEDS: BISACODYL 5 MG TABLET EC PO (09:19)
--- NOTE | 2024-05-09 11:08 | PCNFU ---
Nutrition Follow-Up Complete: Severe protein calorie malnutrition related to chronic altered GI function as evidenced by weight loss 20%/6 months; intakes <75% needs >1 month; severe muscle wasting and fat loss Goal:Diet advancement Improve PO intake to at least 50% meals and supplements when advanced Pt slowly progressing towards goal. Continue with same goal. Pt current nutrition is Regular. Nutrition recommendation: Add Ensure compact BID for supplement Last recorded weight is 55.9 kg. Bowel Motility: last recorded was 05/05 Labs Reviewed: Hgb:7.8, HCT:24.4, Alb:2.7, NA:125, BUN:24 Meds Noted: zofran Skin: WNL Additional Notes: Pt on a regular diet, 1800ml Fluid restriction. Intake remains poor at 10-25%. Pt asleep during assessment. Encourage po intake of meals, Consider resuming ensure compact BID for supplement if pt will tolerate. Monitoring diet orders, weights, labs, plan of care Follow up in 3 days
[2024-05-09 11:29] LABS: Creatinine, Random Urine 256 mg/dL (20-320); Total Prot/Creat ratio mg/mg 0.145 (0.025-0.148); Total Protein/Creatinine Ratio 145 mg/g creat (25-148)
--- NOTE | 2024-05-09 12:18 | PM.PNNEP ---
Progress Note: A&P Assessment and Plan (1) Hyponatremia: Code(s): E87.1 - Hypo-osmolality and hyponatremia Status: Acute Assessment and Plan: Most likely related to his underlying malignancy as is his most significant risk factor The use of narcotics and pain medications may be playing a role with this issue was present even before this came into play An effort to try to expedite surgical intervention, we will try salt tablets with Lasix and if necessary consider 3% saline. However, how fast he response to these interventions is unclear has GI malignancies are notorious for causing hyponatremia that is difficult to treat. The goal of therapy would try to get his sodium level is close to 130 millimoles per L as possible and go from there Will continue to follow. Subjective Date/time seen: 05/09/24 12:18 Interval history: Follow-up for hyponatremia. Received 3% saline yesterday but sodium only incremented to 125mmol/L; sodium stable at 125mmol/L by AM labs but most recent sodium back down to 124mmol/L; no other real significant change noted. Exam Narrative: General: thin male in NAD Heart: normal S1 and S2; no rub Lungs: clear to auscultation Abdomen: soft, nontender, mild distension, positive bowel sounds Extremities: no cyanosis or clubbing; no edema Skin: no rash Objective Data Vital Signs Vital Signs: Vital Signs Temp Pulse Resp BP Pulse Ox 05/09/24 05:24 98.0 F 96 16 118/87 100 05/08/24 21:45 98.7 F 101 H 17 125/93 H 100 05/08/24 14:00 98.0 F 90 14 136/96 H 96 Intake/Output Intake/Output: Intake & Output 05/06/24 05/07/24 05/08/24 05/09/24 23:59 23:59 23:59 23:59 Intake Total 3260 2698.3 240 240 Output Total 200 500 Balance 3260 2498.3 240 -260 Meds/Results Medications: Active Medications Generic Name Dose Route Start Last Admin Trade Name Freq PRN Reason Stop Dose Admin Acetaminophen 650 mg 05/03/24 12:01 05/06/24 19:59 Acetaminophen 325 Mg Tablet PO 650 mg Q4H PRN Administration Mild Pain (1-3) or Fever Hydrocodone Bitart/Acetaminophen 1 tab 05/07/24 11:42 05/09/24 12:37 Hydrocodone/Acetaminophen (*Crx) 5-325 Mg Tablet PO 1 tab Q4H PRN Administration Pain Rated 4-6 Amlodipine Besylate 5 mg 05/04/24 10:25 05/09/24 09:18 Amlodipine Besylate 5 Mg Tablet PO 5 mg DAILY JEREMY Administration Bisacodyl 5 mg 05/07/24 09:00 05/09/24 09:19 Bisacodyl 5 Mg Tablet Ec PO 5 mg QAM JEREMY Administration Enoxaparin Sodium 40 mg 05/06/24 09:00 05/09/24 09:15 Enoxaparin 40 Mg/0.4 Ml Syringe SUB-Q 40 mg DAILY JEREMY Administration Fentanyl Citrate 25 mcg 05/05/24 16:20 Fentanyl Citrate Inj (*Crx) 100 Mcg/2 Ml Vial IV PUSH Q2M PRN Pain Ferrous Sulfate 325 mg 05/04/24 17:00 05/09/24 09:18 Ferrous Sulfate [address] PO 325 mg BID JEREMY Administration Furosemide 20 mg 05/08/24 09:00 05/09/24 09:18 Furosemide 20 Mg Tablet PO 20 mg BID JEREMY Administration Sodium Chloride 220 mls @ 55 mls/hr 05/09/24 13:15 Sodium Chloride 3% IV CONT 05/09/24 17:14 .Q4H [facility] Lidocaine 1 patch 05/08/24 13:40 05/09/24 09:12 Lidocaine 5% Patch TRANSDERM 1 patch DAILY [facility] Administration Morphine Sulfate 2 mg 05/07/24 11:43 05/08/24 19:38 Morphine Sulfate (*Crx) 2 Mg/Ml Inj IV PUSH 2 mg Q8HR PRN Administration Pain Rated 7-10 Ondansetron HCl 4 mg 05/03/24 18:37 05/08/24 17:32 Ondansetron Inj 4 Mg/2 Ml Vial IV PUSH 4 mg Q6H PRN Administration Nausea And Vomiting Ondansetron HCl 4 mg 05/05/24 16:20 05/06/24 14:04 Ondansetron Inj 4 Mg/2 Ml Vial IV PUSH 4 mg ONCE PRN Administration Nausea Oxycodone HCl 5 mg 05/05/24 16:20 Oxycodone Hcl (*Crx) 5 Mg Tab Ir PO ONCE PRN Pain Simethicone 80 mg 05/06/24 17:10 05/09/24 12:34 Simethicone 80 Mg Tab.Chew PO 80 mg QID JEREMY Adm
[2024-05-09 12:39] LABS: Sodium 124 mmol/L (137-145)
[2024-05-09 12:54] LABS: Kappa\\Lambda Light Chains 1.59 (0.26-1.65); Lambda Light Chain 42.3 mg/L (5.7-26.3)
[2024-05-09 14:00] VITALS: BP 124/94; PULSE 103; RESP 14; TEMP 37.1; O2SAT 100
[2024-05-09] MEDS: SODIUM CHLORIDE 3% 55 ML IV CONT (14:04)
--- NOTE | 2024-05-09 17:17 | WPDPN ---
Progress Note: A&P Assessment and Plan (1) Colon wall thickening: Code(s): K63.9 - Disease of intestine, unspecified Status: Acute (2) Constipation: Code(s): K59.00 - Constipation, unspecified Status: Acute (3) Portal vein thrombosis: Code(s): I81 - Portal vein thrombosis Status: Acute (4) Cirrhosis: Code(s): K74.60 - Unspecified cirrhosis of liver Status: Acute (5) Weight loss: Code(s): R63.4 - Abnormal weight loss Status: Acute (6) Anorexia: Code(s): R63.0 - Anorexia Status: Acute (7) Iron deficiency anemia: Code(s): D50.9 - Iron deficiency anemia, unspecified Status: Acute (8) Hyponatremia: Code(s): E87.1 - Hypo-osmolality and hyponatremia Status: Acute Plan today patient is littel more awake, he was given pain medication, had paracentesis on 05/03/2024 and 5L was removed, fluids consist of colorectal or appendiceal origin, suspicious for malignancy, primary source is unclear, to further evaluate and find the primary source on 05/04 patient had EGD and colonoscopy which showed a mass in his stomach suspect malignant tumor, and patient is seen by ophthalmic surgical assistant oncologist has ordered port placement for the patient and will have pet scan as an outpatient, patient sodium is running low most likely 2/2 gastric cancer, I have placed the patient on free fluids restriction however patient PO intake is very poor, discussed with Dr. Boyer started the patient on Salt tablet 1g BID, however patient is unable to swallow the pills, will start the normal saline at 75 cc an hour, on 05/08 patient was infused 3% saline, patient sodiume increased to 125 from 123, again today patient is given 3% saline and recheck at 1800, will monitor. on 05/08 patient parents were present in the room and gave them updates and answer their questions. Subjective Date/time seen: 05/09/24 17:17 Interval history: today patient is littel more awake, he was given pain medication, had paracentesis on 05/03/2024 and 5L was removed, fluids consist of colorectal or appendiceal origin, suspicious for malignancy, primary source is unclear, to further evaluate and find the primary source on 05/04 patient had EGD and colonoscopy which showed a mass in his stomach suspect malignant tumor, and patient is seen by ophthalmic surgical assistant oncologist has ordered port placement for the patient and will have pet scan as an outpatient, patient sodium is running low most likely 2/2 gastric cancer, I have placed the patient on free fluids restriction however patient PO intake is very poor, discussed with Dr. Boyer started the patient on Salt tablet 1g BID, however patient is unable to swallow the pills, will start the normal saline at 75 cc an hour, on 05/08 patient was infused 3% saline, patient sodiume increased to 125 from 123, again today patient is given 3% saline and recheck at 1800, will monitor. on 05/08 patient parents were present in the room and gave them updates and answer their questions. Review of Systems Review of Systems: All systems reviewed & are unremarkable except as noted in HPI and below Exam Narrative: Appears chronically ill Patient is comfortable, NAD HEENT: eyes are clear and none icteric LUNGS:CTA HEART: RR S1S2 ABD: BS+, Soft and diffusely tender Lower extremities: no edema SKIN: nonjaundiced Neuro: grossly intact. Objective Data Vital Signs Vital Signs: Vital Signs - 24 hr 05/08/24 21:45 05/09/24 05:24 Temperature 37.1 C 36.7 C Pulse Rate 101 H 96 Respiratory Rate 17 16 Blood Pressure 125/93 H 118/87 Pulse Oximetry 100 100 Intake/Output Intake/Output: Intake & Output 05/06/24 05/07/24 05/08/24 05/09/24 23:59 23:59 23:59 23:59 Intake Total 3260 2698.3 240 240 Output Total 200 930 Balance 3260 2498.3 240 -690 Meds/Results Medications: Active Medications Generic Name Dose Route Start Last Admin Trade Name Freq
[2024-05-09 18:39] LABS: Sodium 126 mmol/L (137-145)
[2024-05-09 19:32] VITALS: BP 111/77; PULSE 105; RESP 16; TEMP 37.1; O2SAT 99
[2024-05-09] MEDS: MORPHINE SULFATE (*CRX) 2 MG/ML INJ IV PUSH (21:05)
[2024-05-10 00:13] LABS: Sodium 126 mmol/L (137-145)
[2024-05-10 05:36] VITALS: BP 123/91; PULSE 100; RESP 16; TEMP 36.8; O2SAT 100
[2024-05-10 05:44] LABS: Protein, Total 4.8 g/dL (6.1-8.1)
[2024-05-10 08:00] LABS: Albumin Peritoneal Fluid 1.7
[2024-05-10 08:01] LABS: Amylase Peritoneal Fluid 20
[2024-05-10 08:49] LABS: Alanine Aminotransferase 15 U/L (6-50); Albumin Level 2.8 g/dL (3.5-5.1); Alkaline Phosphatase 75 U/L (38-126); Anion Gap 8 mmol/L (4-12); Aspartate Amino Transferase 44 U/L (17-59); Bilirubin,Total 0.2 mg/dL (0.2-1.3); Blood Urea Nitrogen 23 mg/dL (9-20); Calcium 7.9 mg/dL (8.4-10.2); Carbon Dioxide 27 mmol/L (22-30); Chloride 93 mmol/L (98-107); Estimated CRCL calculation 75 ml/min; Estimated Glomerular Filt Rate > 60; Glucose 88 mg/dL (65-110); Potassium 4.1 mmol/L (3.4-5.0); Sodium 128 mmol/L (137-145)
[2024-05-10 08:50] LABS: Basophils Percent Auto 0.5 % (0.2-1.2); Eosinophils Percent Auto 0.3 % (0-4.4); Hematocrit 24.7 % (42.0-52.0); Hemoglobin 7.7 g/dL (14.0-18.0); Immature Granulocyte Absolute 0.09 K/mm3 (0.00-0.031); Immature Granulocyte Percent A 1.4 % (0-0.5); Lymphocytes Absolute Auto 0.95 K/mm3 (0.9-3.2); Lymphocytes Percent Auto 14.4 % (18.3-44.2); Mean Corpuscular HGB Conc 31.2 g/dl (32-36); Mean Corpuscular Hemoglobin 25.1 pg (26-34); Mean Corpuscular Volume 80.5 fl (80-100); Mean Platelet Volume 9.1 fl (7.4-10.4); Monocytes Absolute Auto 0.5 K/mm3 (0.1-0.6); Neutrophils Percent Auto 76.4 % (45.5-73.1); Nucleated Red Blood Cells Perc 0.5 % (0.0-0.2); Platelet Count Result 454 k/mm3 (150-375); Red Blood Count 3.07 M/mm3 (4.6-6.20); White Blood Count 6.6 K/mm3 (4.5-10.0)
[2024-05-10] MEDS: LIDOCAINE 5% PATCH 1 PATCH TRANSDERM (08:54)
[2024-05-10] MEDS: SIMETHICONE 80 MG TAB.CHEW PO ×4 (08:57→22:49)
[2024-05-10] MEDS: ENOXAPARIN 40 MG/0.4 ML SYRINGE SUB-Q (08:59)
[2024-05-10] MEDS: BISACODYL 5 MG TABLET EC PO (09:03)
[2024-05-10] MEDS: SODIUM CHLORIDE 1 GM TABLET PO ×3 (09:03→22:49)
[2024-05-10] MEDS: amLODIPine BESYLATE 5 MG TABLET PO (09:04)
[2024-05-10] MEDS: FERROUS SULFATE 325 MG TABLET DR PO ×2 (09:04→17:47)
[2024-05-10] MEDS: FUROSEMIDE 20 MG TABLET PO ×2 (09:04→17:47)
--- NOTE | 2024-05-10 11:39 | PM.PNNEP ---
Progress Note: A&P Assessment and Plan (1) Hyponatremia: Code(s): E87.1 - Hypo-osmolality and hyponatremia Status: Acute Assessment and Plan: slow improvement noted most likely related to his underlying malignancy as is his most significant risk factor the use of narcotics and pain medications may be playing a role with this issue was present even before this came into play using salt tablets with Lasix along with fluid restriction and 3% saline PRN However, how fast he response to these interventions is unclear has GI malignancies are notorious for causing hyponatremia that is difficult to treat. The goal of therapy would try to get his sodium level is close to 130 millimoles per L as possible and go from there Will continue to follow. Subjective Date/time seen: 05/10/24 11:39 Interval history: Follow-up for hyponatremia. Received another infusion of 3% saline yesterday and restarted on salt tablets + lasix with steady improvement in sodium level at this time; no apparent distress noted; appears to get a bit sleepy/lethargic when given pain medications; no issues/events overnight or earlier this AM. Exam Narrative: General: thin male in NAD Heart: normal S1 and S2; no rub Lungs: clear to auscultation Abdomen: soft, nontender, mild distension, positive bowel sounds Extremities: no cyanosis or clubbing; no edema Skin: no nodules Objective Data Vital Signs Vital Signs: Vital Signs Temp Pulse Resp BP Pulse Ox 05/10/24 05:36 98.2 F 100 16 123/91 H 100 05/09/24 19:32 98.7 F 105 H 16 111/77 99 05/09/24 14:00 98.8 F 103 H 14 124/94 H 100 Intake/Output Intake/Output: Intake & Output 05/07/24 05/08/24 05/09/24 05/10/24 23:59 23:59 23:59 23:59 Intake Total 2698.3 240 1478 240 Output Total 200 1280 250 Balance 2498.3 240 198 -10 Meds/Results Medications: Active Medications Generic Name Dose Route Start Last Admin Trade Name Freq PRN Reason Stop Dose Admin Acetaminophen 650 mg 05/03/24 12:01 05/06/24 19:59 Acetaminophen 325 Mg Tablet PO 650 mg Q4H PRN Administration Mild Pain (1-3) or Fever Hydrocodone Bitart/Acetaminophen 1 tab 05/07/24 11:42 05/10/24 12:16 Hydrocodone/Acetaminophen (*Crx) 5-325 Mg Tablet PO 1 tab Q4H PRN Administration Pain Rated 4-6 Amlodipine Besylate 5 mg 05/04/24 10:25 05/10/24 09:04 Amlodipine Besylate 5 Mg Tablet PO 5 mg DAILY JEREMY Administration Bisacodyl 5 mg 05/07/24 09:00 05/10/24 09:03 Bisacodyl 5 Mg Tablet Ec PO 5 mg QAM JEREMY Administration Enoxaparin Sodium 40 mg 05/06/24 09:00 05/10/24 08:59 Enoxaparin 40 Mg/0.4 Ml Syringe SUB-Q 40 mg DAILY JEREMY Administration Fentanyl Citrate 25 mcg 05/05/24 16:20 Fentanyl Citrate Inj (*Crx) 100 Mcg/2 Ml Vial IV PUSH Q2M PRN Pain Ferrous Sulfate 325 mg 05/04/24 17:00 05/10/24 09:04 Ferrous Sulfate [address] PO 325 mg BID JEREMY Administration Furosemide 20 mg 05/08/24 09:00 05/10/24 09:04 Furosemide 20 Mg Tablet PO 20 mg BID JEREMY Administration Lidocaine 1 patch 05/08/24 13:40 05/10/24 08:54 Lidocaine 5% Patch TRANSDERM 1 patch DAILY JEREMY Administration Morphine Sulfate 2 mg 05/07/24 11:43 05/09/24 21:05 Morphine Sulfate (*Crx) 2 Mg/Ml Inj IV PUSH 2 mg Q8HR PRN Administration Pain Rated 7-10 Ondansetron HCl 4 mg 05/03/24 18:37 05/08/24 17:32 Ondansetron Inj 4 Mg/2 Ml Vial IV PUSH 4 mg Q6H PRN Administration Nausea And Vomiting Ondansetron HCl 4 mg 05/05/24 16:20 05/06/24 14:04 Ondansetron Inj 4 Mg/2 Ml Vial IV PUSH 4 mg ONCE PRN Administration Nausea Oxycodone HCl 5 mg 05/05/24 16:20 Oxycodone Hcl (*Crx) 5 Mg Tab Ir PO ONCE PRN Pain Simethicone 80 mg 05/06/24 17:10 05/10/24 12:16 Simethicone 80 Mg Tab.Chew PO 80 mg QID JEREMY Administration Sodium Chloride 1 gm
--- NOTE | 2024-05-10 12:10 | WPDPN ---
Progress Note: A&P Assessment and Plan (1) Colon wall thickening: Code(s): K63.9 - Disease of intestine, unspecified Status: Acute (2) Constipation: Code(s): K59.00 - Constipation, unspecified Status: Acute (3) Portal vein thrombosis: Code(s): I81 - Portal vein thrombosis Status: Acute (4) Cirrhosis: Code(s): K74.60 - Unspecified cirrhosis of liver Status: Acute (5) Weight loss: Code(s): R63.4 - Abnormal weight loss Status: Acute (6) Anorexia: Code(s): R63.0 - Anorexia Status: Acute (7) Iron deficiency anemia: Code(s): D50.9 - Iron deficiency anemia, unspecified Status: Acute (8) Hyponatremia: Code(s): E87.1 - Hypo-osmolality and hyponatremia Status: Acute Plan today patient is littel more awake, he was given pain medication, had paracentesis on 05/03/2024 and 5L was removed, fluids consist of colorectal or appendiceal origin, suspicious for malignancy, primary source is unclear, to further evaluate and find the primary source on 05/04 patient had EGD and colonoscopy which showed a mass in his stomach suspect malignant tumor, and patient is seen by certified phlebotomy technician oncologist has ordered port placement for the patient and will have pet scan as an outpatient, patient sodium is running low most likely 2/2 gastric cancer, I have placed the patient on free fluids restriction however patient PO intake is very poor, discussed with Dr. Boyer started the patient on Salt tablet 1g BID, however patient is unable to swallow the pills, will start the normal saline at 75 cc an hour, on 05/08 patient was infused 3% saline, patient sodiume increased to 125 from 123, on 05/09 patient was given 3% saline and recheck at today patient sodium is 128, Discussed with the Dr. Boyer recommended to continue salt tablets, will monitor. on 05/08 patient parents were present in the room and gave them updates and answer their questions. Subjective Date/time seen: 05/10/24 12:10 Interval history: today patient is littel more awake, he was given pain medication, had paracentesis on 05/03/2024 and 5L was removed, fluids consist of colorectal or appendiceal origin, suspicious for malignancy, primary source is unclear, to further evaluate and find the primary source on 05/04 patient had EGD and colonoscopy which showed a mass in his stomach suspect malignant tumor, and patient is seen by certified phlebotomy technician oncologist has ordered port placement for the patient and will have pet scan as an outpatient, patient sodium is running low most likely 2/2 gastric cancer, I have placed the patient on free fluids restriction however patient PO intake is very poor, discussed with Dr. Boyer started the patient on Salt tablet 1g BID, however patient is unable to swallow the pills, will start the normal saline at 75 cc an hour, on 05/08 patient was infused 3% saline, patient sodiume increased to 125 from 123, on 05/09 patient was given 3% saline and recheck at today patient sodium is 128, Discussed with the Dr. Boyer recommended to continue salt tablets, will monitor. on 05/08 patient parents were present in the room and gave them updates and answer their questions. Review of Systems Review of Systems: All systems reviewed & are unremarkable except as noted in HPI and below Exam Narrative: Appears chronically ill Patient is comfortable, NAD HEENT: eyes are clear and none icteric LUNGS:CTA HEART: RR S1S2 ABD: BS+, Soft and diffusely tender Lower extremities: no edema SKIN: nonjaundiced Neuro: grossly intact. Objective Data Vital Signs Vital Signs: Vital Signs - 24 hr 05/09/24 14:00 05/09/24 19:32 05/10/24 05:36 Temperature 37.1 C 37.1 C 36.8 C Pulse Rate 103 H 105 H 100 Respiratory Rate 14 16 16 Blood Pressure 124/94 H 111/77 123/91 H Pulse Oximetry 100 99 100 Intake/Output Intake/Output: Intake & Output 05/07/24 05/08/24 05/09/24 05/10/24 2
[2024-05-10] MEDS: HYDROcodone/acetaminophen (*CRX) 5-325 MG TABLET 1 TAB PO (12:16)
[2024-05-10 14:00] VITALS: BP 127/84; PULSE 97; RESP 14; TEMP 37; O2SAT 100
[2024-05-10 15:03] LABS: Osmolality, Urine 977 mOsm/kg (50-1200)
[2024-05-10 16:08] VITALS: BP 100/57; PULSE 105; RESP 18; TEMP 36.2; O2SAT 98
[2024-05-10 16:44] LABS: Immunofixation, Serum Normal pattern.
[2024-05-10] MEDS: MORPHINE SULFATE (*CRX) 2 MG/ML INJ IV PUSH (17:53)
[2024-05-10] MEDS: ONDANSETRON INJ 4 MG/2 ML VIAL IV PUSH (17:57)
[2024-05-10 20:52] VITALS: BP 110/82; PULSE 106; RESP 14; TEMP 36.6; O2SAT 100
[2024-05-10 21:01] LABS: Sodium 128 mmol/L (137-145)
[2024-05-10] MEDS: FUROSEMIDE 10 MG TABLET PO (22:48)
[2024-05-11] VITALS (14 sets, daily range): BP systolic 116–153; BP diastolic 84–110; PULSE 69–102; RESP 12–20; TEMP 35.9–36.8; O2SAT 100
[2024-05-11 06:51] LABS: Basophils Percent Auto 0.3 % (0.2-1.2); Eosinophils Percent Auto 0.1 % (0-4.4); Hematocrit 25.1 % (42.0-52.0); Hemoglobin 7.8 g/dL (14.0-18.0); Immature Granulocyte Absolute 0.09 K/mm3 (0.00-0.031); Immature Granulocyte Percent A 1.3 % (0-0.5); Lymphocytes Absolute Auto 0.92 K/mm3 (0.9-3.2); Lymphocytes Percent Auto 13.4 % (18.3-44.2); Mean Corpuscular HGB Conc 31.1 g/dl (32-36); Mean Corpuscular Hemoglobin 24.7 pg (26-34); Mean Corpuscular Volume 79.4 fl (80-100); Mean Platelet Volume 8.6 fl (7.4-10.4); Monocytes Absolute Auto 0.4 K/mm3 (0.1-0.6); Monocytes Percent Auto 5.1 % (2.6-8.5); Neutrophils Absolute Auto 5.5 K/mm3 (1.3-6.7); Neutrophils Percent Auto 79.8 % (45.5-73.1); Nucleated Red Blood Cells Perc 0.4 % (0.0-0.2); Platelet Count Result 417 k/mm3 (150-375); Red Blood Count 3.16 M/mm3 (4.6-6.20); Red Cell Distribution Width 17.9 % (11.5-14.5); White Blood Count 6.9 K/mm3 (4.5-10.0)
[2024-05-11 07:08] LABS: Alanine Aminotransferase 16 U/L (6-50); Albumin Level 2.8 g/dL (3.5-5.1); Alkaline Phosphatase 78 U/L (38-126); Anion Gap 8 mmol/L (4-12); Aspartate Amino Transferase 40 U/L (17-59); Bilirubin,Total 0.2 mg/dL (0.2-1.3); Blood Urea Nitrogen 22 mg/dL (9-20); Calcium 8.1 mg/dL (8.4-10.2); Carbon Dioxide 27 mmol/L (22-30); Chloride 92 mmol/L (98-107); Estimated CRCL calculation 83 ml/min; Estimated Glomerular Filt Rate > 60; Glucose 95 mg/dL (65-110); Magnesium 1.9 mg/dL (1.6-2.3); Potassium 3.8 mmol/L (3.4-5.0); Sodium 127 mmol/L (137-145)
--- NOTE | 2024-05-11 08:03 | WPDHPUPDATE1 ---
History and Physical Update Update Date/Time: 05/11/24 08:03 History and Physical has been reviewed, including an updated exam of the patient. There are NO changes in the patient's condition. Risks, benefits, and alternatives have been discussed and questions answered. Patient agrees to proceed with procedure.
[2024-05-11] MEDS: LIDOCAINE 5% PATCH 1 PATCH TRANSDERM (08:40)
[2024-05-11] MEDS: amLODIPine BESYLATE 5 MG TABLET PO (08:45)
[2024-05-11] MEDS: SODIUM CHLORIDE 1 GM TABLET PO ×2 (08:45→16:45)
[2024-05-11] MEDS: FUROSEMIDE 20 MG TABLET PO ×2 (08:45→16:44)
[2024-05-11] MEDS: SIMETHICONE 80 MG TAB.CHEW PO ×3 (08:45→20:40)
--- NOTE | 2024-05-11 09:31 | PC.NURSE ---
To OR per [ ], IV [ ]. Report given to [Judy].
[2024-05-11] MEDS: LACTATED RINGERS 1,000 ML 30 ML IV CONT (10:00)
--- NOTE | 2024-05-11 11:22 | WPDANESEPPF ---
Anes - Initial Pre Proc Eval Procedure: Operation Date: 05/04/24 15:30 Proposed Procedures p Esophagogastroduodenoscopy & Colonoscopy - Jerald Thompson MD Operation Date: 05/06/24 13:00 Proposed Procedures p Insertion Miah Cath - Feliciano Morales MD Operation Date: 05/11/24 11:00 Proposed Procedures p Insertion Miah Cath Under Fluoroscopy - Feliciano Morales MD Date/Time: 05/11/24 11:22 Surgeon: Riley Gordon MD Pre Op Diagnosis: Malignant ascites Patient Data Age: 28 Gender: M Height: 1.93 m Weight: 55.9 kg Last Vital Signs Temp 98.2 F 05/11/24 09:54 Pulse 102 H 05/11/24 09:54 Resp 16 05/11/24 09:54 BP 131/98 H 05/11/24 09:54 Pulse Ox 100 05/11/24 09:54 O2 Del Method Room Air 05/11/24 09:54 Allergies Allergy/AdvReac Type Severity Reaction Status Date / Time No Known Allergies Allergy Verified 05/04/24 14:35 Home Medications Medication Instructions Recorded Confirmed Type amlodipine 5 mg tablet 5 mg PO DAILY 05/04/24 05/04/24 History Laboratory Tests 05/07/24 05/07/24 05/10/24 02:33 06:40 20:43 WBC RBC Hgb Hct MCV MCH MCHC RDW Plt Count MPV Immature Gran % (Auto) Neut % (Auto) Lymph % (Auto) [place] % (Auto) Eos % (Auto) Baso % (Auto) Lymph # (Auto) [place] # (Auto) Eos # (Auto) Baso # (Auto) Abs Immat Gran (auto) Absolute Neuts (auto) Absolute Nucleated RBC Nucleated RBC % Sodium 128 L mmol/L (137-145) Potassium Chloride Carbon Dioxide Anion Gap BUN Creatinine Estim Creat Clear Calc Estimated GFR Glucose Serum Osmolality 263 L mOsm/kg (278-305) Calcium Magnesium Total Bilirubin AST ALT Alkaline Phosphatase Total Protein Albumin Urine Osmolality 977 mOsm/kg (50-1200) Serum Immunofixation Normal pattern. 05/11/24 06:27 WBC 6.9 K/mm3 (4.5-10.0) RBC 3.16 L M/mm3 (4.6-6.20) Hgb 7.8 L g/dL (14.0-18.0) Hct 25.1 L % (42.0-52.0) MCV 79.4 L fl (80-100) MCH 24.7 L pg (26-34) MCHC 31.1 L g/dl (32-36) RDW 17.9 H % (11.5-14.5) Plt Count 417 H k/mm3 (150-375) MPV 8.6 fl (7.4-10.4) Immature Gran % (Auto) 1.3 H % (0-0.5) Neut % (Auto) 79.8 H % (45.5-73.1) Lymph % (Auto) 13.4 L % (18.3-44.2) [place] % (Auto) 5.1 % (2.6-8.5) Eos % (Auto) 0.1 % (0-4.4) Baso % (Auto) 0.3 % (0.2-1.2) Lymph # (Auto) 0.92 K/mm3 (0.9-3.2) [place] # (Auto) 0.4 K/mm3 (0.1-0.6) Eos # (Auto) 0.0 K/mm3 (0-0.3) Baso # (Auto) 0.0 K/mm3 (0.0-0.1) Abs Immat Gran (auto) 0.09 H K/mm3 (0.00-0.031) Absolute Neuts (auto) 5.5 K/mm3 (1.3-6.7) Absolute Nucleated RBC 0.030 H K/mm3 (0.0-0.012) Nucleated RBC % 0.4 H % (0.0-0.2) Sodium 127 L mmol/L (137-145) Potassium 3.8 mmol/L (3.4-5.0) Chloride 92 L mmol/L (98-107) Carbon Dioxide 27 mmol/L (22-30) Anion Gap 8 mmol/L (4-12) BUN 22 H mg/dL (9-20) Creatinine 0.90 mg/dL (0.7-1.3) Estim Creat Clear Calc 83 ml/min Estimated GFR > 60 (59 - ) Glucose 95 mg/dL (65-110) Serum Osmolality Calcium 8.1 L mg/dL (8.4-10.2) Magnesium 1.9 mg/dL (1.6-2.3) Total Bilirubin 0.2 mg/dL (0.2-1.3) AST 40 U/L (17-59) ALT 16 U/L (6-50) Alkaline Phosphatase 78 U/L (38-126) Total Protein 6.0 L g/dL (6.3-8.2) Albumin 2.8 L g/dL (3.5-5.1) Urine Osmolality Serum Immunofixat
[2024-05-11] MEDS: HEPARIN SODIUM 1,000 UNITS/ML VIAL 1000 UNITS IV PUSH (11:47)
[2024-05-11] MEDS: ceFAZolin 2 GM/D5W 50 ML 2 GM/50 ML BAG IVPB (11:47)
[2024-05-11] MEDS: BUPIVACAINE/EPINEPHRINE 0.5% 10 ML VIAL 30 ML INFILTRATE (11:47)
[2024-05-11 12:54] LABS: Albumin 1.8 g/dL (3.8-4.8); Alpha 1 Globulin 0.6 g/dL (0.2-0.3); Alpha 2 Globulin 0.9 g/dL (0.5-0.9); Beta 1 Globulin 0.4 g/dL (0.4-0.6); Gamma Globulin 0.9 g/dL (0.8-1.7)
--- NOTE | 2024-05-11 13:11 | W.PM.PROC2 ---
Procedure Note - Detailed Date of Procedure 05/11/24 Pre-op Diagnosis Metastatic gastric cancer, inadequate venous access for chemotherapy Post-op Diagnosis Same Procedure Performed placement left internal jugular Port-A-Cath using ultrasound and under fluoroscopy. Surgeon Feliciano Morales MD Coding Clerk Anita ALEXANDER, Tamir ALEXANDER Anesthesia General ( G IV S) and Local Indications patient presented to the hospital frail with weight loss and anemia. His evaluation showed metastatic gastric adenocarcinoma. The tumor is HER2 positive. I was asked to place a Port-A-Cath last week for venous access for chemotherapy. The patient's serum sodium was too low to proceed last week. It is now higher although still low. He is taken to surgery now for placement of the Port-A-Cath using ultrasound and under fluoroscopy. Findings The 1st rib the clavicle had too narrow of an angle to attempt left subclavian venous access. Using ultrasound, I accessed the left internal jugular vein but the guidewire would not pass easily from the innominate into the superior vena cava. I used the dilator as a venous catheter over the guidewire. In this fashion, I used a 0.035 glidewire with a J-hook and eventually did get this wire to go into the superior vena cava. The dilator passed then into the superior vena cava. We were then able to position the Port-A-Cath in the appropriate position after this obstacle. Description of Procedure Patient was taken to surgery and anesthesia was introduced. The left neck and left chest were prepped and draped. The proposed left subclavian incision was marked on the skin. Local was infiltrated into the skin and the deeper subcutaneous tissues. Incision was made and then dissection was carried down through the skin and subcutaneous. Dissection was continued through the pectoralis major fascia. A subfascial pocket was made just below the incision for the Port-A-Cath reservoir. Cautery was used for hemostasis. I then used a 22 gauge needle and attempted to infiltrate local as well as cannulate the left internal jugular vein. I was then able to get past the bony structures as the angle between the 1st rib and clavicle was too narrow to allow the 22 gauge needle to pass into the vicinity of the left subclavian vein. I abandoned this approach. We then brought the ultrasound into the field in sterile fashion. Using hand-held ultrasound, I was able to find the left internal jugular vein. Additional local was infiltrated into the neck where we would access the vein. Using ultrasound guidance, the left internal jugular vein was cannulated and venous blood returned. I was able to partially pass a guidewire but not able to pass it to the extent I expected. The ultrasound equipment was removed and fluoroscopy was brought in. Fluoroscopy showed that the guidewire had instead gone to the right subclavian vein. I pulled the guidewire back and attempted to pass it down into the superior vena cava. I was unable to do so despite several attempts. I then used the dilator associated with the Port-A-Cath placement and passed this over the guidewire. I positioned the dilator at the entrance to the superior vena cava but was still unable to pass the guidewire associated with the kit down the superior vena cava. I left the dilator in position and removed the guidewire. I then used a 0.035 J tipped Glidewire and passed this down the dilator. After 2 or 3 attempts, the Glidewire did pass into the superior vena cava and down into the inferior vena cava. I then advanced the dilator down into the superior vena cava. I removed the J tipped Glidewire from the dilator. I then passed the original guidewire with the Port-A-Cath kit through the dilator and into the superior vena cava. These exchanges and positioning were all done using fluoroscopic guidance. The port occur catheterization 2 we then tied to a tunneler. Two counter returns were made in
--- NOTE | 2024-05-11 13:49 | SUR.PHASEI ---
1348 - dr. parr aware of b/p 138/110. order received
[2024-05-11] MEDS: LABETALOL HCL INJ 100 MG/20 ML VIAL IV PUSH (13:57)
--- NOTE | 2024-05-11 14:03 | PC.NURSE ---
Returned from OR per [ ]. Report received from [theodora].
--- NOTE | 2024-05-11 14:21 | PM.IMPN ---
Progress Note: A&P Assessment and Plan (1) Hyponatremia: Code(s): E87.1 - Hypo-osmolality and hyponatremia Status: Acute Assessment and Plan: Sodium level better overall but still low at 127. Nephrology followong Continue NaCl tabs as tolerated. (2) Stomach cancer: Code(s): C16.9 - Malignant neoplasm of stomach, unspecified Status: Acute Assessment and Plan: Patient with ascites from cirrhosis but found to have cancer cells c/w malignant ascites. EGD showing gastric mass in the body of the stomach that was malignant appearing. Biopsies taken showing adenocarcinoma. Sigmoidoscopy did not reveal any abnormalities. Malignant ascites pathology showed adenocarcinoma as well. Oncology following. Port-A-Cath placed today. Patient is very emaciated so it is unclear if he would even tolerate chemotherapy. Currently not eating very much. Will add supplements. (3) Malignant ascites: Code(s): R18.0 - Malignant ascites Status: Acute Assessment and Plan: As above (4) Cirrhosis: Code(s): K74.60 - Unspecified cirrhosis of liver Status: Acute Assessment and Plan: Patient with history of cirrhosis. INR 1.1. Albumin 2.8 Somnulent from the procedure. Check ammonia level if his cognition does not improve. (5) Portal vein thrombosis: Code(s): I81 - Portal vein thrombosis Status: Acute Assessment and Plan: CT scan from admisison showing possible thrombus in the portal vein. Patient started on Lovenox prophylaxis dose. Plan was to start Eliquis but on hold for port placement. Plt count okay but he is anemic. Start Eliquis when okay with Surgery. (6) Severe protein-calorie malnutrition: Code(s): E43 - Unspecified severe protein-calorie malnutrition Status: Acute Assessment and Plan: Severe protein calorie malnutrition related to stomach cancer as evidenced by weight loss of 20%. As supplements. (7) Iron deficiency anemia: Code(s): D50.9 - Iron deficiency anemia, unspecified Status: Acute Assessment and Plan: Hemoglobin low but stable. Continue iron (8) Colon wall thickening: Code(s): K63.9 - Disease of intestine, unspecified Status: Acute Assessment and Plan: As above (9) Constipation: Code(s): K59.00 - Constipation, unspecified Status: Acute Assessment and Plan: No bowel movement listed for 6 days. Add MiraLax Plan DVT proph - lovenox Code status - full Subjective Date/time seen: 05/11/24 14:21 Interval history: 28yo male with cirrhosis here for abdominal pain. Assuming care. Elizabeth reviewed. patient is just back from his procedure and is somnolent. Hx is limited but pain is controlled. Exam Narrative: AF 97.2 125/99 69 16 100% ra Gen - extremely thin, chronically ill appearing male in NARD Chest - CTA bilaterally, nml RR. left upper chest incisions at insertion site and port site are clean, dry and intact CV - RRR S1/S2 Abd - Soft, protuberant, +BS Ext - No pedal edema Neuro - somnolent Psych - dificult to assess Skin - cool and dry Objective Data Vital Signs Vital Signs: Vital Signs - 24 hr 05/10/24 16:08 05/10/24 20:52 05/11/24 05:16 Temperature 97.2 F L 97.8 F 97.7 F Pulse Rate 105 H 106 H 92 Respiratory Rate 18 14 14 Blood Pressure 100/57 L 110/82 116/84 Pulse Oximetry 98 100 100 Oxygen Delivery Oxygen Flow Rate 05/11/24 09:54 05/11/24 13:09 05/11/24 13:20 Temperature 98.2 F 97.2 F L Pulse Rate 102 H 95 86 Respiratory Rate 16 13 12 Blood Pressure 131/98 H 136/98 H 129/101 H Pulse Oximetry 100 100 100 Oxygen Delivery Room Air Simple Face Mask Simple Face Mask Oxygen Flow Rate 8 8 05/11/24 13:35 05/11/24 13:50 05/11/24 13:57 Temperature Pulse Rate 85 85 85 Respiratory Rate 16 15 Blood Pressure 133/102 H 138/110 H Pulse Oximetry 100 100 Oxyg
[2024-05-11] MEDS: polyethylene glycoL 3350 17 GM POWD.PACK PO (15:09)
[2024-05-11] MEDS: FERROUS SULFATE 325 MG TABLET DR PO (16:44)
[2024-05-11] MEDS: ONDANSETRON INJ 4 MG/2 ML VIAL IV PUSH (17:55)
[2024-05-11] MEDS: MORPHINE SULFATE (*CRX) 2 MG/ML INJ IV PUSH (20:40)
[2024-05-12 04:32] VITALS: BP 141/102; PULSE 106; RESP 20; TEMP 36.6; O2SAT 100
[2024-05-12 06:00] VITALS: BP 147/102; PULSE 106; RESP 14; TEMP 36.9; O2SAT 100
[2024-05-12 06:24] LABS: Basophils Percent Auto 0.1 % (0.2-1.2); Eosinophils Percent Auto 0.1 % (0-4.4); Hematocrit 28.3 % (42.0-52.0); Hemoglobin 8.6 g/dL (14.0-18.0); Immature Granulocyte Absolute 0.11 K/mm3 (0.00-0.031); Immature Granulocyte Percent A 0.9 % (0-0.5); Lymphocytes Absolute Auto 0.89 K/mm3 (0.9-3.2); Lymphocytes Percent Auto 7.4 % (18.3-44.2); Mean Corpuscular HGB Conc 30.4 g/dl (32-36); Mean Corpuscular Hemoglobin 24.6 pg (26-34); Mean Corpuscular Volume 81.1 fl (80-100); Mean Platelet Volume 8.9 fl (7.4-10.4); Monocytes Absolute Auto 0.6 K/mm3 (0.1-0.6); Monocytes Percent Auto 4.8 % (2.6-8.5); Neutrophils Absolute Auto 10.4 K/mm3 (1.3-6.7); Neutrophils Percent Auto 86.7 % (45.5-73.1); Nucleated Red Blood Cells Perc 0.2 % (0.0-0.2); Platelet Count Result 440 k/mm3 (150-375); Red Blood Count 3.49 M/mm3 (4.6-6.20); Red Cell Distribution Width 18.6 % (11.5-14.5)
[2024-05-12 06:33] LABS: Ammonia < 9 umol/L (9-30)
[2024-05-12 06:34] LABS: Alanine Aminotransferase 17 U/L (6-50); Alkaline Phosphatase 87 U/L (38-126); Anion Gap 10 mmol/L (4-12); Aspartate Amino Transferase 45 U/L (17-59); Bilirubin,Total 0.2 mg/dL (0.2-1.3); Blood Urea Nitrogen 26 mg/dL (9-20); Calcium 8.4 mg/dL (8.4-10.2); Carbon Dioxide 25 mmol/L (22-30); Chloride 93 mmol/L (98-107); Estimated CRCL calculation 75 ml/min; Estimated Glomerular Filt Rate > 60; Glucose 101 mg/dL (65-110); Potassium 4.2 mmol/L (3.4-5.0); Sodium 128 mmol/L (137-145)
[2024-05-12] MEDS: polyethylene glycoL 3350 17 GM POWD.PACK PO (08:48)
[2024-05-12] MEDS: SIMETHICONE 80 MG TAB.CHEW PO ×4 (08:49→20:55)
[2024-05-12] MEDS: SODIUM CHLORIDE 1 GM TABLET PO (08:49)
[2024-05-12] MEDS: FERROUS SULFATE 325 MG TABLET DR PO (08:49)
[2024-05-12] MEDS: BISACODYL 5 MG TABLET EC PO (08:49)
[2024-05-12] MEDS: FUROSEMIDE 20 MG TABLET PO (08:49)
[2024-05-12] MEDS: amLODIPine BESYLATE 5 MG TABLET PO (08:49)
[2024-05-12 08:50] VITALS: O2SAT 100
[2024-05-12] MEDS: LIDOCAINE 5% PATCH 1 PATCH TRANSDERM (08:50)
[2024-05-12] MEDS: HYDROcodone/acetaminophen (*CRX) 5-325 MG TABLET 1 TAB PO (08:51)
--- NOTE | 2024-05-12 10:47 | PCNFU ---
Nutrition Follow-Up Complete: Severe protein calorie malnutrition related to chronic altered GI function as evidenced by weight loss 20%/6 months; intakes <75% needs >1 month; severe muscle wasting and fat loss Goal:Diet advancement Improve PO intake to at least 50% meals and supplements when advanced Pt slowly progressing towards goal. Continue with same goal. Pt current nutrition is Regular, Ensure Enlive TID with meals. Nutrition recommendation: continue with current plan of care Last recorded weight is 55.9 kg. Bowel Motility:No BM recorded at this time Labs Reviewed:Hgb:8.6, HCT:28.3, NA:128, BUN:26 Meds Noted: lovenox, lasix Skin: WNL Additional Notes: Pt continues on a regular diet, intake 25-50% at times but remains poor overall. Ensure Enlive TID in place. Continue to encourage po intake of meals and supplements. Monitoring diet orders, weights, labs, plan of care Follow up in 5 days
--- NOTE | 2024-05-12 10:57 | P.PNAN_ITS ---
Anes - Prog Note Post-Op Date/Time: 05/12/24 10:57 Cardiovascular status: normal Respiratory status: normal Airway patency: baseline Mental status: baseline Post-Op hydration status: normal Vital Signs: Last Vital Signs Temp 36.6 C 05/12/24 04:32 Pulse 106 H 05/12/24 04:32 Resp 20 05/12/24 04:32 BP 141/102 H 05/12/24 04:32 Pulse Ox 100 05/12/24 04:32 O2 Del Method Room Air 05/11/24 20:40 O2 Flow Rate 8 05/11/24 13:20 Pain Score (VAS): Patient asleep. No nonverbal signs of pain present at this time. I/O: Intake & Output 05/11/24 05/12/24 05/12/24 23:59 07:59 15:59 Intake Total 1090 220 200 Output Total 200 Balance 1090 220 0 Laboratory Tests 05/12/24 06:14 05/12/24 06:14 05/07/24 05/12/24 06:40 06:14 WBC 12.0 H RBC 3.49 L Hgb 8.6 L Hct 28.3 L MCV 81.1 MCH 24.6 L MCHC 30.4 L RDW 18.6 H Plt Count 440 H MPV 8.9 Immature Gran % (Auto) 0.9 H Neut % (Auto) 86.7 H Lymph % (Auto) 7.4 L [place] % (Auto) 4.8 Eos % (Auto) 0.1 Baso % (Auto) 0.1 L Lymph # (Auto) 0.89 L [place] # (Auto) 0.6 Eos # (Auto) 0.0 Baso # (Auto) 0.0 Abs Immat Gran (auto) 0.11 H Absolute Neuts (auto) 10.4 H Absolute Nucleated RBC 0.030 H Nucleated RBC % 0.2 Sodium 128 L Potassium 4.2 Chloride 93 L Carbon Dioxide 25 Anion Gap 10 BUN 26 H Creatinine 1.00 Estim Creat Clear Calc 75 Estimated GFR > 60 Glucose 101 Calcium 8.4 Magnesium 2.0 Total Bilirubin 0.2 AST 45 ALT 17 Alkaline Phosphatase 87 Ammonia < 9 L Total Protein 7.0 Albumin 1.8 L 3.0 L Vxssw-0-Jgifkakwd 0.6 H Mrbxj-4-Rekgxrctd 0.9 Mlko-5-Tigweeub 0.4 Nrcn-9-Uhqdeuou 0.3 Gamma Globulins 0.9 Abnorm Protein Band 1 Not Reportable Abnorm Protein Band 3 Not Reportable PEP Interpretation See note Post-procedural complaints: none Patient Feedback: Patient satisfied with anesthetic care.
[2024-05-12] MEDS: ENOXAPARIN 40 MG/0.4 ML SYRINGE SUB-Q (12:19)
--- NOTE | 2024-05-12 12:31 | PM.PNNEP ---
Progress Note: A&P Assessment and Plan (1) Hyponatremia: Code(s): E87.1 - Hypo-osmolality and hyponatremia Status: Acute Assessment and Plan: slow improvement noted most likely related to his underlying malignancy as is his most significant risk factor the use of narcotics and pain medications may be playing a role with this issue was present even before this came into play using salt tablets with Lasix along with fluid restriction and 3% saline PRN However, how fast he response to these interventions is unclear has GI malignancies are notorious for causing hyponatremia that is difficult to treat. The goal of therapy would try to get his sodium level is close to 130 millimoles per L as possible and go from there Will continue to follow from a distance Subjective Date/time seen: 05/12/24 12:31 Interval history: Follow-up for hyponatremia. Unable to see yesterday as was out of room for procedure at the time of my visit -- s/p Port-a-Cath insertion yesterday in OR; tolerated procedure reasonably well; sodium remains relatively stable at this time; major complaint is sensation of bloating; no other acute issues overnight or earlier this AM. Exam Narrative: General: thin male in NAD Heart: normal S1 and S2; no rub Lungs: clear to auscultation Abdomen: soft, nontender, mild distension, positive bowel sounds Extremities: no cyanosis or clubbing; no edema Skin: no nodules Objective Data Vital Signs Vital Signs: Vital Signs Temp Pulse Resp BP Pulse Ox O2 Del Method 05/12/24 12:00 97.4 F L 104 H 20 118/81 100 05/12/24 04:32 97.8 F 106 H 20 141/102 H 100 05/11/24 20:40 Room Air 05/11/24 23:29 97.2 F L 94 20 123/91 H 100 05/11/24 20:32 96.6 F L 97 16 139/87 100 Intake/Output Intake/Output: Intake & Output 05/09/24 05/10/24 05/11/24 05/12/24 23:59 23:59 23:59 23:59 Intake Total 1478 1018 1460 420 Output Total 1280 650 900 200 Balance 198 368 560 220 Meds/Results Medications: Active Medications Generic Name Dose Route Start Last Admin Trade Name Freq PRN Reason Stop Dose Admin Acetaminophen 650 mg 05/03/24 12:01 05/06/24 19:59 Acetaminophen 325 Mg Tablet PO 650 mg Q4H PRN Administration Mild Pain (1-3) or Fever Hydrocodone Bitart/Acetaminophen 1 tab 05/07/24 11:42 05/12/24 08:51 Hydrocodone/Acetaminophen (*Crx) 5-325 Mg Tablet PO 1 tab Q4H PRN Administration Pain Rated 4-6 Amlodipine Besylate 5 mg 05/04/24 10:25 05/12/24 08:49 Amlodipine Besylate 5 Mg Tablet PO 5 mg DAILY JEREMY Administration Apixaban 5 mg 05/12/24 21:00 Apixaban 5 Mg Tablet PO Q12HR JEREMY Bisacodyl 5 mg 05/07/24 09:00 05/12/24 08:49 Bisacodyl 5 Mg Tablet Ec PO 5 mg QAM JEREMY Administration Ferrous Sulfate 325 mg 05/04/24 17:00 05/12/24 08:49 Ferrous Sulfate [address] PO 325 mg BID JEREMY Administration Furosemide 20 mg 05/08/24 09:00 05/12/24 08:49 Furosemide 20 Mg Tablet PO 20 mg BID JEREMY Administration Lidocaine 1 patch 05/08/24 13:40 05/12/24 08:50 Lidocaine 5% Patch TRANSDERM 1 patch DAILY JEREMY Administration Morphine Sulfate 2 mg 05/07/24 11:43 05/11/24 20:40 Morphine Sulfate (*Crx) 2 Mg/Ml Inj IV PUSH 2 mg Q8HR PRN Administration Pain Rated 7-10 Ondansetron HCl 4 mg 05/03/24 18:37 05/11/24 17:55 Ondansetron Inj 4 Mg/2 Ml Vial IV PUSH 4 mg Q6H PRN Administration Nausea And Vomiting Polyethylene Glycol 17 gm 05/11/24 14:55 05/12/24 08:48 Polyethylene Glycol 3350 17 Gm Powd.Pack PO 17 gm QAM JEREMY Administration Simethicone 80 mg 05/06/24 17:10 05/12/24 12:19 Simethicone 80 Mg Tab.Chew PO 80 mg QID JEREMY Administration Sodium Chloride 1 gm 05/10/24 09:00 05/12/24 08:49 Sodium Chloride 1 Gm Tablet PO 1 gm BID JEREMY Administration Radiology Results: ITS Impressions Paracentesis U
[2024-05-12 14:00] VITALS: BP 118/81; PULSE 104; RESP 20; TEMP 36.3; O2SAT 100
--- NOTE | 2024-05-12 14:00 | PM.IMPN ---
Progress Note: A&P Assessment and Plan (1) Hyponatremia: Code(s): E87.1 - Hypo-osmolality and hyponatremia Status: Acute Assessment and Plan: Sodium level better overall but still low at 128 Nephrology following Continue NaCl tabs as tolerated. (2) Stomach cancer: Code(s): C16.9 - Malignant neoplasm of stomach, unspecified Status: Acute Assessment and Plan: Patient with ascites from cirrhosis but found to have malignant ascites. EGD showing gastric mass in the body of the stomach that was malignant appearing. Biopsies taken showing adenocarcinoma. Sigmoidoscopy did not reveal any abnormalities. Malignant ascites pathology showed adenocarcinoma as well. Oncology following. Port-A-Cath placed 05/12. Patient is very emaciated so it is unclear if he would even tolerate chemotherapy. Currently not eating very much. Supplements added. Plan to repeat paracentesis as therapeutic. Out of bed. (3) Malignant ascites: Code(s): R18.0 - Malignant ascites Status: Acute Assessment and Plan: As above (4) Cirrhosis: Code(s): K74.60 - Unspecified cirrhosis of liver Status: Acute Assessment and Plan: Patient with history of cirrhosis. INR 1.1. Albumin 2.8 Ammonia level <9. Albumin better at 3. Paracentesis today. Follow (5) Portal vein thrombosis: Code(s): I81 - Portal vein thrombosis Status: Acute Assessment and Plan: CT scan from admisison showing possible thrombus in the portal vein. Patient started on Lovenox prophylaxis dose. Plan was to start Eliquis but on hold for port placement. Plt count okay but he is anemic. Start Eliquis per oncology recommendation Care coordination to see about affordablity (6) Severe protein-calorie malnutrition: Code(s): E43 - Unspecified severe protein-calorie malnutrition Status: Acute Assessment and Plan: Severe protein calorie malnutrition related to stomach cancer as evidenced by weight loss of 20%. Supplements added. (7) Iron deficiency anemia: Code(s): D50.9 - Iron deficiency anemia, unspecified Status: Acute Assessment and Plan: Hemoglobin low but stable. Continue iron (8) Colon wall thickening: Code(s): K63.9 - Disease of intestine, unspecified Status: Acute Assessment and Plan: False findings. As above (9) Constipation: Code(s): K59.00 - Constipation, unspecified Status: Acute Assessment and Plan: No bowel movement listed for 6 days. Continue MiraLax Plan DVT proph - lovenox Code status - full Subjective Date/time seen: 05/12/24 14:00 Interval history: 28yo male with cirrhosis here for abdominal pain. Patient feels bloated. no nausea or vomiting but did not eat much due to the bloating. No diarrhea. Last BM a few days ago. Passing flatus. no CP or SOB. Exam Narrative: AF 97.8 141/102 106 20 100% ra Gen - extremely thin, chronically ill appearing male in NARD lying flat in bed Chest - CTA bilaterally, nml RR. left upper chest incisions clean, dry and intact CV - RRR S1/S2 Abd - Soft, protuberant, +BS, NT Ext - No pedal edema Psych - subdued Skin - cool and dry Objective Data Vital Signs Vital Signs: Vital Signs - 24 hr 05/11/24 14:05 05/11/24 14:30 05/11/24 14:45 Temperature 97.0 F L 97.0 F L Pulse Rate 69 87 75 Respiratory Rate 16 18 18 Blood Pressure 125/99 H 143/96 H 141/103 H Pulse Oximetry 100 100 100 Oxygen Delivery Room Air 05/11/24 15:15 05/11/24 16:15 05/11/24 20:32 Temperature 97.9 F 97.1 F L 96.6 F L Pulse Rate 78 80 97 Respiratory Rate 18 18 16 Blood Pressure 153/101 H 145/103 H 139/87 Pulse Oximetry 100 100 100 Oxygen Delivery 05/11/24 23:29 05/11/24 20:40 05/12/24 04:32 Temperature 97.2 F L 97.8 F Pulse Rate 94 106 H Respiratory Rate 20 20 Blood Pressure 123/91 H 141/102 H Pulse Oximetr
[2024-05-12 16:32] VITALS: BP 119/85; PULSE 97; RESP 20; TEMP 36.8; O2SAT 100
[2024-05-12] MEDS: MORPHINE SULFATE (*CRX) 2 MG/ML INJ IV PUSH (20:55)
[2024-05-12 21:25] VITALS: BP 128/104; PULSE 107; RESP 14; TEMP 36.8; O2SAT 100
[2024-05-13 06:00] VITALS: BP 123/102; PULSE 103; RESP 14; TEMP 36.9; O2SAT 100
[2024-05-13 06:01] LABS: Basophils Percent Auto 0.2 % (0.2-1.2); Eosinophils Percent Auto 0.1 % (0-4.4); Hematocrit 27.4 % (42.0-52.0); Hemoglobin 8.4 g/dL (14.0-18.0); Immature Granulocyte Absolute 0.07 K/mm3 (0.00-0.031); Immature Granulocyte Percent A 0.7 % (0-0.5); Lymphocytes Absolute Auto 0.93 K/mm3 (0.9-3.2); Lymphocytes Percent Auto 9.7 % (18.3-44.2); Mean Corpuscular HGB Conc 30.7 g/dl (32-36); Mean Corpuscular Hemoglobin 25.3 pg (26-34); Mean Corpuscular Volume 82.5 fl (80-100); Mean Platelet Volume 8.9 fl (7.4-10.4); Monocytes Absolute Auto 0.4 K/mm3 (0.1-0.6); Monocytes Percent Auto 4.6 % (2.6-8.5); Neutrophils Absolute Auto 8.1 K/mm3 (1.3-6.7); Neutrophils Percent Auto 84.7 % (45.5-73.1); Platelet Count Result 424 k/mm3 (150-375); Red Blood Count 3.32 M/mm3 (4.6-6.20); Red Cell Distribution Width 18.8 % (11.5-14.5); White Blood Count 9.6 K/mm3 (4.5-10.0)
[2024-05-13 06:15] LABS: Alanine Aminotransferase 17 U/L (6-50); Alkaline Phosphatase 84 U/L (38-126); Anion Gap 8 mmol/L (4-12); Aspartate Amino Transferase 50 U/L (17-59); Bilirubin,Total 0.2 mg/dL (0.2-1.3); Blood Urea Nitrogen 28 mg/dL (9-20); Calcium 8.1 mg/dL (8.4-10.2); Carbon Dioxide 27 mmol/L (22-30); Chloride 94 mmol/L (98-107); Estimated CRCL calculation 92 ml/min; Estimated Glomerular Filt Rate > 60; Glucose 95 mg/dL (65-110); Magnesium 2.2 mg/dL (1.6-2.3); Potassium 4.6 mmol/L (3.4-5.0); Sodium 129 mmol/L (137-145)
[2024-05-13 07:31] LABS: LDH Peritoneal Fluid 164
[2024-05-13] MEDS: MORPHINE SULFATE (*CRX) 2 MG/ML INJ IV PUSH (08:20)
[2024-05-13] MEDS: LIDOCAINE 5% PATCH 1 PATCH TRANSDERM (08:20)
[2024-05-13] MEDS: polyethylene glycoL 3350 17 GM POWD.PACK PO (12:15)
[2024-05-13] MEDS: FUROSEMIDE 20 MG TABLET PO (12:16)
[2024-05-13] MEDS: BISACODYL 5 MG TABLET EC PO (12:16)
[2024-05-13] MEDS: FERROUS SULFATE 325 MG TABLET DR PO (12:17)
[2024-05-13] MEDS: amLODIPine BESYLATE 5 MG TABLET PO (12:17)
[2024-05-13] MEDS: SIMETHICONE 80 MG TAB.CHEW PO (12:17)
[2024-05-13] MEDS: ALBUMIN HUMAN 25% 25 GM/100 ML 100 ML IVPB (12:21)
[2024-05-13 14:00] VITALS: BP 121/91; PULSE 91; RESP 14; TEMP 35.9; O2SAT 100
--- NOTE | 2024-05-13 15:57 | PM.DS ---
DS: Admitting Diagnosis Discharge Date 05/13/24 Admitting Diagnosis Abdominal pain DS: Discharge Diagnosis Discharge Diagnosis (1) Hyponatremia: Code(s): E87.1 - Hypo-osmolality and hyponatremia Status: Acute (2) Stomach cancer: Code(s): C16.9 - Malignant neoplasm of stomach, unspecified Status: Acute (3) Malignant ascites: Code(s): R18.0 - Malignant ascites Status: Acute (4) Cirrhosis: Code(s): K74.60 - Unspecified cirrhosis of liver Status: Acute (5) Portal vein thrombosis: Code(s): I81 - Portal vein thrombosis Status: Acute (6) Severe protein-calorie malnutrition: Code(s): E43 - Unspecified severe protein-calorie malnutrition Status: Acute (7) Iron deficiency anemia: Code(s): D50.9 - Iron deficiency anemia, unspecified Status: Acute (8) Colon wall thickening: Code(s): K63.9 - Disease of intestine, unspecified Status: Acute (9) Constipation: Code(s): K59.00 - Constipation, unspecified Status: Acute DS: Summary Hospital Course Reason for hospitalization: 28yo male with cirrhosis here for abdominal pain. Please see H&P for details. Hospital Course: Patient had a paracentesis on 04/28 and found to have malignant ascites. Patient presented on 05/03 here with abdominal pain. He underwent repeat paracentesis on 05/03 with removal of 5L. EGD showing gastric mass in the body of the stomach that was malignant appearing. Biopsies taken showing adenocarcinoma. CT Abd/pelvis showing gross ascites with possible loculation in the the pelvis, highly suggestive of thrombus in the portal vein, thickening of the wall in the area of the sigmoid colon and transverse colon, slightly dilated small bowel loops, slightly prominent pancreatic duct and minimal fullness of the renal pelvis bilaterally. Sigmoidoscopy did not reveal any abnormalities. Malignant ascites pathology showed adenocarcinoma as well. Oncology following. Port-A-Cath placed 05/12. Patient is very emaciated so it is unclear if he would even tolerate chemotherapy. Currently not eating very much. Supplements added. Patient with history of cirrhosis. INR 1.1. Albumin 3. Ammonia level <9. Oncology recommended starting Eliquis for his portal vein thrombosis. Patient started on Lovenox prophylaxis dose. Plan was to start Eliquis but was on hold for procedures/port placement. Plt count okay but he is anemic. He was started on Eliquis per oncology recommendation. Care coordination noted that this medication is affordable for patient. Patient with severe protein calorie malnutrition related to stomach cancer as evidenced by weight loss of 20%. He overall did well but his buttermaker prognosis is poor. He was able to be discharged home on 05/13/24. Status at Discharge Cognitive/behavioral status at discharge: stable Time Spent with Patient Time attestation: Total time spent providing and/or coordinating discharge services: 35 minutes Time spent: Greater than 30 minutes Exam Narrative: AF 96.7 121/91 91 14 100% ra Gen - extremely thin, chronically ill appearing male in NARD lying flat in bed Chest - lungs clear anteriorly. nml RR. left upper chest incisions clean, dry and intact CV - RRR S1/S2 Abd - Soft, abd less protuberant, +BS, NT Ext - No pedal edema Psych - subdued Skin - cool and dry DS: Data Data Completed and Pending Completed studies during hospitalization: Pending at discharge 05/04/24 15:24 Surgical [PTH] Routine Labs on day of discharge: Labs from last 24 hours 05/13/24 05/03/24 05:56 11:45 WBC 9.6 RBC 3.32 L Hgb 8.4 L Hct 27.4 L MCV 82.5 MCH 25.3 L MCHC 30.7 L RDW 18.8 H Plt Count 424 H MPV 8.9 Immature Gran % (Auto) 0.7 H Neut % (Auto) 84.7 H Lymph % (Auto) 9.7 L [place] % (Auto) 4.6 Eos % (Auto) 0.1 Baso % (Auto) 0.2 Lymph # (Auto) 0.93 [place] # (Auto) 0.4 Eos #
== END 2024-05-13 17:35 | disposition home or self-care (01) | DRG 240 ==
LOC: ANHED 08:01 → ANH3MEDSUR 12:12
PROVIDERS: Family Medicine; Internal Medicine Gastroenterology; Internal Medicine Nephrology; Nurse Practitioner Adult Health; Nurse Practitioner Family; Surgery; Admitting Provider Internal Medicine; Emergency Provider Student in an Organized Health Care Education/Training Program; Visit Provider Internal Medicine
PROC: 0DJ08ZZ Inspection of Upper Intestinal Tract, Via Natural or Artificial Opening Endoscopic (ICD-10-PCS; CPT 43235; principal; 2024-05-04 15:30)
DX: C16.2 Malignant neoplasm of body of stomach (principal); C18.9 Malignant neoplasm of colon, unspecified; R18.0 Malignant ascites; E43 Unspecified severe protein-calorie malnutrition; D63.0 Anemia in neoplastic disease; E87.1 Hypo-osmolality and hyponatremia; D75.839 Thrombocytosis, unspecified; K59.00 Constipation, unspecified; D50.9 Iron deficiency anemia, unspecified; E88.09 Other disorders of plasma-protein metabolism, not elsewhere classified; R63.0 Anorexia; K74.60 Unspecified cirrhosis of liver; I81 Portal vein thrombosis; Z68.1 Body mass index [BMI] 19.9 or less, adult
CPT/HCPCS: 36415; 49083; 70450; 74177; 77001; 80048; 80053; 81001; 81050; 82042; 82140; 82150; 82378; 82533; 82570; 82945; 83615; 83690; 83735; 83883; 83930; 83935; 84155; 84156; 84157; 84165; 84166; 84295; 84300; 84443; 84540; 85025; 85610; 85730; 86334; 86335; 86850; 86900; 86901; 87070; 87075; 87205; 88305; 88342; 89051; 96374; 99285; A9270; C1769; C1788; G0378; G0379; J0690; J1100; J1644; J1650; J1756; J1940; J2250; J2270; J2405; J2704; J3010; J7030; J7050; J7120; J7131; P9047; Q9967